=== PATIENT | female | born 1945 | race Caucasian/White ===

== ENCOUNTER 2017-09-13 07:51 | Inpatient (IN) ==
[2017-09-08 13:42] LABS: Appearance,Urine CLOUDY; Bacteria,Urine MANY /hpf (0); Bilirubin,Urine NEG (NEG); Color,Urine YELLOW; Glucose,Urine (UA) NEGATIVE (NEG); Leukocyte Esterase,Urine 25 /uL (NEG); Mucus,Urine FEW /hpf (0); Protein,Urine NEG (NEG); Specific Gravity,Urine 1.009 (1.000-1.035); Urine Blood NEG mg/dL (<0.03); Urine RBC 4 /hpf (0-1); Urine Squamous Epithelial Cell 16 /hpf (0-4); Urine WBC 13 /hpf (0-4); Urobilinogen,Urine NEG (NEG)
[2017-09-08 13:58] LABS: Basophils # (Auto) 0.1 K/mcL (0.0-0.3); Basophils % (Auto) 0.7 % (0.0-2.0); Eosinophils # (Auto) 0.2 K/mcL (0.0-0.7); Eosinophils % (Auto) 2.3 % (0.0-7.0); Granulocytes % (Auto) 62.5 % (38.0-78.0); Lymphocytes # (Auto) 2.4 K/mcL (1.5-4.8); Lymphocytes % (Auto) 27.4 % (15.5-49.0); Mean Cell Volume 85.4 fL (80.0-100.0); Mean Corpuscular HGB Conc 32.8 g/dL (31.0-36.0); Monocytes # (Auto) 0.6 K/mcL (0.1-0.9); Monocytes % (Auto) 7.1 % (1.0-12.0); Platelet Count 282 K/mcL (140-440); RBC 4.27 M/mcL (4.00-5.20); Red Cell Distribution Width 18.1 % (11.5-14.5)
[2017-09-08 14:06] LABS: Blood Urea Nitrogen 20 mg/dl (8-23)
[~2017-09-13 07:51] MED LIST: ACETAMINOPHEN 500 MG TABLET PO SCH; CELECOXIB 200 MG CAPSULE PO SCH; GABAPENTIN 300 MG CAPSULE PO SCH; ceFAZolin 1 GM VIAL IV SCH; oxyCODONE 10 MG TAB.ER.12H PO SCH
[2017-09-13 09:35] LABS: Appearance,Urine HAZY; Bacteria,Urine MOD /hpf (0); Bilirubin,Urine NEG (NEG); Color,Urine YELLOW; Glucose,Urine (UA) NEGATIVE (NEG); Leukocyte Esterase,Urine NEG /uL (NEG); Mucus,Urine MOD /hpf (0); Protein,Urine 30 mg/dL (NEG); Urine Blood NEG mg/dL (<0.03); Urine Hyaline Cast 9 /lpf (0-2); Urine RBC 1 /hpf (0-1); Urine Squamous Epithelial Cell 2 /hpf (0-4); Urine Transitional Epi Cells < 1 /hpf (0-2); Urine WBC 2 /hpf (0-4); Urobilinogen,Urine NEG (NEG)
[2017-09-13] MEDS ORDERED: GENTAMICIN SULFATE 800 MG/20 ML VIAL IR ONE (10:48)
[2017-09-13] MEDS ORDERED: ePHEDrine 50 MG/ML AMPUL IV ONE (11:40)
[2017-09-13] MEDS ORDERED: ROPIVACAINE HCL/PF 30 ML VIAL IJ ONE (11:40)
[2017-09-13] MEDS ORDERED: TRANEXAMIC ACID 1,000 MG/10 ML VIAL IV ONE ×3 (11:40→13:36)
[2017-09-13] MEDS ORDERED: MIDAZOLAM 2 MG/2 ML VIAL IV ONE (11:40)
[2017-09-13] MEDS ORDERED: LIDOCAINE HCL/PF 100 MG/5 ML SYRINGE IV ONE (11:40)
[2017-09-13] MEDS ORDERED: fentaNYL 100 MCG/2 ML VIAL IV ONE ×2 (11:40→13:28)
[2017-09-13] MEDS ORDERED: DEXAMETHASONE 10 MG/ML VIAL IV ONE (11:40)
[2017-09-13] MEDS ORDERED: PROPOFOL 200 MG/20 ML VIAL IV ONE (11:40)
[2017-09-13] MEDS ORDERED: PHENYLEPHRINE 10 MG/ML VIAL IV ONE (11:40)
[2017-09-13] MEDS ORDERED: BENZOCAINE/MENTHOL 1 LOZENGE PO PRN ×2 (13:15→13:25)
[2017-09-13] MEDS ORDERED: ONDANSETRON 4 MG/2 ML VIAL IV PRN ×2 (13:15→13:25)
[2017-09-13] MEDS ORDERED: LACTATED RINGERS 250 ML IV PRN (13:15)
[2017-09-13] MEDS ORDERED: LACTATED RINGERS 1,000 ML IV SCH (13:15)
[2017-09-13] MEDS ORDERED: PROMETHAZINE 25 MG/ML VIAL IV PRN (13:15)
[2017-09-13] MEDS ORDERED: FLUMAZENIL 0.1 MG/ML ML IV PRN (13:15)
[2017-09-13] MEDS ORDERED: IPRATROPIUM/ALBUTEROL 3 ML AMPUL.NEB NEB PRN (13:15)
[2017-09-13] MEDS ORDERED: METHOCARBAMOL 1,000 MG/10 ML VIAL IV PRN (13:15)
[2017-09-13] MEDS ORDERED: MEPERIDINE 25 MG/ML SYRINGE IV PRN (13:15)
[2017-09-13] MEDS ORDERED: NALOXONE HCL 0.4 MG/ML VIAL IV PRN (13:15)
[2017-09-13] MEDS ORDERED: MAGNESIUM HYDROXIDE 30 ML ORAL.SUSP PO PRN (13:25)
[2017-09-13] MEDS ORDERED: HYDROmorphone 2 MG/ML VIAL IV PRN (13:25)
[2017-09-13] MEDS ORDERED: FLEETS ADULT ENEMA PR PRN (13:25)
[2017-09-13] MEDS ORDERED: BISACODYL 10 MG SUPP.RECT PR PRN (13:25)
[2017-09-13] MEDS ORDERED: ACETAMINOPHEN 325 MG TABLET PO PRN (13:25)
[2017-09-13] MEDS ORDERED: POLYETHYLENE GLYCOL 3350 17 GM PACKET PO PRN (13:25)
[2017-09-13] MEDS ORDERED: TEMAZEPAM 15 MG CAPSULE PO PRN (13:25)
[2017-09-13] MEDS ORDERED: KETOROLAC 15 MG/ML VIAL IV PRN (13:25)
--- NOTE | 2017-09-13 13:25 | Brief Operative Note ---
Date of procedure: 09/13/17 Pre-op diagnosis: right shoulder rca and bicep tendonosis Post-op diagnosis: same Procedure: Right shoulder reverse tsa and bicep tenodesis Grafts/Implants: Yes Anesthesia: BARRYA Surgeon: Kaiser Carbajal Lead Project Manager: Marco Shelton Estimated blood loss (cc): 30
[2017-09-13] MEDS: fentaNYL 100 MCG/2 ML VIAL IV PRN ×2 (13:26→13:39)
--- NOTE | 2017-09-13 13:55 | XRay Report ---
CLINICAL INFORMATION: Reason for Exam:Post-OP Total Shoulder COMPARISON: None. FINDINGS: Total shoulder prostheses is anatomically aligned. No osseous abnormalities. Soft tissue swelling seen as expected IMPRESSION: Negative Interpreted and Authenticated by: Manish Ash 09/13/17
[2017-09-13] MEDS: 0.45 % SODIUM CHLORIDE 1,000 ML IV SCH (14:00)
[2017-09-13] MEDS: 0.9 % SODIUM CHLORIDE 10 ML SYRINGE IV SCH ×2 (14:00→22:02)
--- NOTE | 2017-09-13 16:20 | Operative Note ---
DATE OF OPERATION: 09/13/2017 PREOPERATIVE DIAGNOSES: Right shoulder rotator cuff arthropathy and biceps tendinopathy. POSTOPERATIVE DIAGNOSES: Right shoulder rotator cuff arthropathy and biceps tendinopathy. PROCEDURE: Right reverse total shoulder with a biceps tenodesis. SURGEON: Kaiser Carbajal M.D. CLOUD ENGINEER: Marco Shelton PA-C. ANESTHESIA: General LMA anesthesia. COMPLICATIONS: None. ESTIMATED BLOOD LOSS: About 50 mL. IMPLANTS: Santa reverse total shoulder implants with a 10 mm poly, 36 mm glenosphere, metaglene with a 28 mm central screw, two 32 mm locking screws and a 16 mm screw. The stem was a cementless stem with a small amount of cement near its tip because of bone quality. DESCRIPTION OF PROCEDURE: The patient was brought to the operating room and put to sleep with general LMA anesthesia. Once asleep, the patient had the right shoulder sterilely prepped and draped in the usual sterile fashion. We confirmed the operative site with a timeout and then recognized incisions, initials, x-rays, and consent form. All matched. We then proceeded with a right reverse total shoulder. A deltopectoral approach was performed, retracting the deltoid with the cephalic vein laterally. We exposed the conjoined tendon, retracted it medially. We released the subscap, or what was left of the subscap, and released the remnants of the biceps. We dislocated the humeral head and replaced the biceps tendon and repaired it with a #2 Ethibond. We placed the guide on the humeral head and made our neck cut at 20 degrees of retroversion. Once done, I then placed a plate on the humerus and subluxed it posteriorly. Once done, I then identified the glenoid and performed a 360-degree capsular release and removed the remnants of the biceps tendon with a Bovie. Once done, I then placed the pin centrally. I reamed with the eccentric reamer and then positioned a screw centrally obtaining a 28 mm central screw, two 32 mm and one 16 mm screw with good purchase of all. We irrigated thoroughly and then placed a 36 mm glenosphere, eccentricity with 2 mm of offset and 2 mm of the eccentricity. Once this was placed, we then broached up the humerus to a size 10 stem, trialed components up to the size 10. The 10 poly was very stable and tension perfect for the deltoid. We irrigated thoroughly and cemented into place the distal tip of the 10 mm stem with a proximal ingrowth portion. We tapped into place a 10 mm poly proximally and this was reduced. Good tension, good range of motion throughout. I irrigated thoroughly and then repaired the deltopectoral interval with 2-0 Vicryl, closed the fatty layer with a #1 Stratafix, and closed the skin with 2-0 Vicryls and joanna. Sterile bandage applied. A DonJoy sling was fitted and given to the patient as well. CAIN:dean Job ID: [id number] Doc ID: [id number] Kaiser Carbajal MD
[2017-09-13] MEDS: oxyCODONE/APAP 5/325MG TABLET PO PRN (16:36)
[2017-09-13] MEDS: ceFAZolin 1 GM VIAL IV SCH (19:53)
[2017-09-13] MEDS ORDERED: MONTELUKAST 10 MG TABLET PO SCH (21:00)
[2017-09-13] MEDS ORDERED: FUROSEMIDE 20 MG TABLET PO SCH (21:00)
[2017-09-13] MEDS ORDERED: DOXAZOSIN 4 MG TABLET PO SCH (21:00)
[2017-09-13] MEDS ORDERED: QUEtiapine 100 MG TABLET PO SCH (21:00)
[2017-09-13] MEDS ORDERED: SENNOSIDES 1 TABLET PO SCH (21:00)
[2017-09-13] MEDS ORDERED: GABAPENTIN 300 MG CAPSULE PO SCH (21:00)
[2017-09-13] MEDS: ACLIDINIUM BROMIDE 400 MCG INH SCH (21:47)
[2017-09-13] MEDS: DOCUSATE SODIUM 100 MG CAPSULE PO SCH (21:47)
[2017-09-13] MEDS: SPIRONOLACTONE 25 MG TABLET PO SCH (21:47)
[2017-09-14] MEDS: 0.45 % SODIUM CHLORIDE 1,000 ML IV SCH ×2 (00:34→09:11)
[2017-09-14] MEDS: 0.9 % SODIUM CHLORIDE 10 ML SYRINGE IV SCH (04:00)
[2017-09-14] MEDS: ceFAZolin 1 GM VIAL IV SCH (04:00)
[2017-09-14] MEDS: oxyCODONE/APAP 5/325MG TABLET PO PRN ×2 (04:12→09:09)
--- NOTE | 2017-09-14 07:49 | Orthopedic Progress Note ---
Subjective Patient information: Note initiated : 09/14/17 at 7:48 am Service Date, if different from initiated Date: [] Patient: Ursula Dumont 72 y/o F admitted on 09/13/17 for Right Reverse Total Shoulder Arthroplasty. Chief Complaint: [Pt is stable this morning on post operative day 1 without any significant concerns or complaints. Patients vital signs have remained stable. Patients dressing is dry and is grossly instact from a neurovascular and motor standpoint. Patients 10 point ROS is otherwise negative. ] Objective Vital signs: Vital Signs Temp Pulse Resp BP Pulse Ox 09/14/17 07:35 96.7 F L 95 H 20 145/78 97 09/14/17 04:45 105 H 151/81 09/14/17 04:00 98.3 F 102 H 20 194/85 91 09/14/17 00:00 97.6 F 101 H 20 161/83 94 09/13/17 22:31 98 09/13/17 22:30 98 09/13/17 20:00 98.3 F 113 H 20 124/75 90 09/13/17 15:59 149/83 93 09/13/17 15:28 146/76 91 09/13/17 15:00 135/91 91 09/13/17 14:29 155/74 91 09/13/17 14:13 153/90 92 09/13/17 13:58 164/80 91 09/13/17 13:40 91 H 15 131/83 95 09/13/17 13:35 92 H 13 121/69 96 09/13/17 13:30 88 12 137/72 96 09/13/17 13:25 89 15 127/67 97 09/13/17 13:20 90 12 122/54 95 09/13/17 13:15 91 H 13 138/59 93 09/13/17 13:10 98.0 F 85 18 154/70 97 09/13/17 08:12 98.1 F 18 145/84 92 09/13/17 07:51 18 Intake and Output 09/13/17 09/14/17 09/14/17 21:59 05:59 13:59 Intake Total 760 / 760 2373 / 2373 Output Total 200 / 200 950 / 950 Balance 560 / 560 1423 / 1423 Intake: IV 1413 / 1413 Sodium Chloride 0.45% 1,000 ml 1413 / 1413 @ 100 mls/hr IV .Q10H ROSE Rx#: [id number] Oral 760 / 760 960 / 960 Output: Void Amount 200 / 200 950 / 950 Other: Meal Dinner Percent of Meal Consumed 100% # Voids 1 1 Weight 192 lb 8 oz Intake & Output: Intake & Output 09/13/17 09/14/17 09/14/17 21:59 05:59 13:59 Intake Total 760 / 760 2373 / 2373 Output Total 200 / 200 950 / 950 Balance 560 / 560 1423 / 1423 Weight 192 lb 8 oz Intake: IV 1413 / 1413 Sodium Chloride 0.45% 1,000 ml 1413 / 1413 @ 100 mls/hr IV .Q10H ROSE Rx#: [id number] Oral 760 / 760 960 / 960 Output: Void Amount 200 / 200 950 / 950 Other: Meal Dinner Percent of Meal Consumed 100% # Voids 1 1 Incision: Yes healing Incision clean and dry: Yes Dressing: Yes clean Weight bearing status: full Neurological exam IM: Yes motor sensory intact, Yes neurovascular intact - Labs CBC & BMP: 09/08/17 11:40 09/08/17 11:40 Labs: 09/08/17 11:40 Hgb 12.0 Hct 36.4 Assessment and Plan (1) History of reverse total replacement of right shoulder joint The patient has been educated regarding dressing care, Physical Therapy recommendations, home exercises, restrictions, and follow up appointments. The patient has had all necessary DME prescribed. The patient has remained relatively stable during their hospital course. Status: Acute
--- NOTE | 2017-09-14 07:54 | Discharge Summary ---
Ortho Discharge - TSA - Patient Instructions Diet: Regular Diet Activity: activity as tolerated, weight bearing as tolerated Total Shoulder Protocol: Leave immobilizer in place except for bathing and ROM. Abduction pillow. Continue to wear sling until seen by physician. Codman Pendulum : These exercises use momentum produced by your body to move your shoulder joint. Bend your knees and shift your weight to your front leg, then back, allowing your arm to swing in the same directions. Using the same technique, alternately shift your weight between your right and left legs, allowing your arm to swing from side to side. These exercises are also performed in counterclockwise and clockwise circular motions. Typically these exercises are performed several times per day, for a set number repetitions or minutes, such as 20 times in a row or 5 minutes at a time. Dressing Care: Aquacel Ag - leave on for 5 days - Problem Maintenance (1) History of reverse total replacement of right shoulder joint Status: Acute - Follow Up Plan Follow Up Appointments: Marco Shelton PA-C [Physician Home Economics Expert] - 09/28/17 10:10 am Disposition: Home, Self-Care Prognosis: Good Rehab Potential: Good I certify that the patient requires SNF services: No Overall status at discharge: patient is progressing back to baseline - Orders For Discharge Prescriptions: Docusate Sodium [Colace] 100 mg PO BID #60 capsule oxyCODONE/APAP [Percocet 5-325 mg] 1 - 2 tab PO Q4HP PRN #75 tablet PRN Reason: Pain Level 3-6
[2017-09-14] MEDS ORDERED: ALLOPURINOL 300 MG TABLET PO SCH (09:00)
[2017-09-14] MEDS ORDERED: EQUATE PO SCH (09:00)
[2017-09-14] MEDS ORDERED: DULoxetine 30 MG CAPSULE PO SCH (09:00)
[2017-09-14] MEDS: DOCUSATE SODIUM 100 MG CAPSULE PO SCH (09:09)
[2017-09-14] MEDS: ACLIDINIUM BROMIDE 400 MCG INH SCH (09:10)
[2017-09-14] MEDS: SPIRONOLACTONE 25 MG TABLET PO SCH (09:10)
[2017-09-14] MEDS: GABAPENTIN 300 MG CAPSULE PO SCH ×2 (09:10→11:29)
== END 2017-09-14 14:45 | disposition home or self-care (01) | DRG 483 ==
LOC: MEDSUR 07:51
PROVIDERS: ADMIT Orthopaedic Surgery; ATTEND Orthopaedic Surgery

== ENCOUNTER 2021-12-29 07:25 | Inpatient (IN) ==
[2021-12-22 11:09] LABS: Basophils # (Auto) 0.07 K/mcL (0.00-0.30); Basophils % (Auto) 0.6 % (0.0-2.0); Eosinophils # (Auto) 0.24 K/mcL (0.00-0.70); Eosinophils % (Auto) 2.2 % (0.0-7.0); Hemoglobin 13.1 g/dL (11.2-15.7); Lymphocytes # (Auto) 1.51 K/mcL (1.50-4.80); Lymphocytes % (Auto) 13.9 % (15.5-49.0); Mean Cell Volume 86.2 fL (80.0-100.0); Mean Corpuscular HGB Conc 32.8 g/dL (31.0-36.0); Mean Platelet Volume 9.8 fL (7.4-10.4); Monocytes # (Auto) 0.83 K/mcL (0.10-0.90); Monocytes % (Auto) 7.6 % (1.0-12.0); Neutrophils % (Auto) 75.2 % (38.0-78.0); Platelet Count 247 K/mcL (140-440); RBC 4.64 M/mcL (3.59-5.38); Red Cell Distribution Width 14.6 % (11.5-14.5); WBC 10.9 K/mcL (4.5-11.0)
[2021-12-22 13:55] LABS: Blood Urea Nitrogen 27 mg/dL (8-23); Calcium 9.8 mg/dL (8.6-10.4); Carbon Dioxide 25 mmol/L (22-30); Chloride 99 mmol/L (96-108); Glomerular Filtration Rate 30; Glucose 185 mg/dL (70-105)
[2021-12-22 15:22] LABS: Appearance,Urine Clear (Clear); Bacteria,Urine FEW /hpf (0); Bilirubin,Urine Negative (Negative); Color,Urine Yellow; Culture Indicated,Urine Yes; Glucose,Urine (UA) Negative (Negative); Ketones,Urine Negative (Negative); Leukocyte Esterase,Urine Negative /uL (Negative); Nitrate,Urine Negative (Negative); Protein,Urine Negative (Negative); Specific Gravity,Urine 1.015 (1.000-1.035); Urine Blood Large ery/mcL (Negative); Urine RBC < 1 /hpf (0-3); Urine Squamous Epithelial Cell 1 /hpf (0-4); Urine WBC 0 /hpf (0-4); Urobilinogen,Urine Normal
--- NOTE | 2021-12-22 19:33 | EKG ---
[facility] Test Date: 2021-12-22 Pat Name: Ursula Dumont Department: YESSICA Room: Gender: Female Glove Operator: : 1945 Requested By: Quique Wooten Order Number: [id number] Reading MD: Edouard Rodriguez Measurements Intervals [place] Rate: 81 P: 51 VT: 189 QRS: 5 QRSD: 89 T: 46 QT: 372 QTc: 432 Interpretive Statements Sinus rhythm Electronically Signed On 12-22-2021 19:33:30 PDT by Edouard Rodriguez /[email or web address]/[email or web address]/[id number]
[2021-12-23 14:15] LABS: Hemoglobin A1C 7.5 % Hgb (4.0-6.0)
[~2021-12-29 07:25] MED LIST changes: +0.9 % SODIUM CHLORIDE 9 ML, KETOROLAC 30 MG, ROPIVACAINE HCL/PF 49.5 ML, EPINEPHrine 0.... IJ SCH; -GABAPENTIN 300 MG CAPSULE PO SCH; +PREGABALIN 25 MG CAPSULE PO SCH; -ceFAZolin 1 GM VIAL IV SCH; +ceFAZolin 2 GM in DEXTROSE 5% IN WATER 50 ML IV SCH
[2021-12-29] MEDS ORDERED: PHENYLephrine 1 MG/10 ML SYRINGE (ANEST) ONE (09:32)
[2021-12-29] MEDS ORDERED: TRANEXAMIC ACID 1,000 MG/10 ML VIAL ONE (09:32)
[2021-12-29] MEDS ORDERED: ONDANSETRON 4 MG/2 ML VIAL ONE (09:32)
[2021-12-29] MEDS ORDERED: ePHEDrine 50 MG/5 ML SYRINGE (ANEST) IV ONE (09:32)
[2021-12-29] MEDS ORDERED: DEXAMETHASONE 10 MG/ML VIAL ONE (09:32)
[2021-12-29] MEDS ORDERED: GLYCOPYRROLATE 0.2 MG/ML VIAL IV ONE (09:32)
[2021-12-29] MEDS ORDERED: MAGNESIUM SULFATE 2 GM/50 ML BAG IV ONE (09:32)
[2021-12-29] MEDS ORDERED: PROPOFOL 200 MG/20 ML VIAL IV ONE (09:32)
[2021-12-29] MEDS ORDERED: ROPIVACAINE HCL/PF 20 ML VIAL IJ ONE (09:32)
[2021-12-29] MEDS ORDERED: LIDOCAINE HCL/PF 100 MG/5 ML SYRINGE IV ONE (09:32)
[2021-12-29] MEDS ORDERED: KETAMINE 50 MG/ML Syringe (ANEST) IV ONE (09:32)
[2021-12-29] MEDS ORDERED: IPRATROPIUM/ALBUTEROL 3 ML AMPUL.NEB NEB PRN (10:00)
[2021-12-29] MEDS ORDERED: fentaNYL 100 MCG/2 ML VIAL IV PRN (10:00)
[2021-12-29] MEDS ORDERED: METOPROLOL TARTRATE 5 MG/5 ML VIAL IV PRN (10:00)
[2021-12-29] MEDS ORDERED: LACTATED RINGERS 1,000 ML IV SCH ×2 (10:00→10:30)
[2021-12-29] MEDS ORDERED: LABETALOL 5 MG/ML ML IV PRN (10:00)
[2021-12-29] MEDS ORDERED: METHOCARBAMOL 1,000 MG/10 ML VIAL IV PRN (10:00)
[2021-12-29] MEDS ORDERED: ACETAMINOPHEN 1,000 MG/100 ML BAG IV ONE (10:00)
[2021-12-29] MEDS ORDERED: LACTATED RINGERS 250 ML IV PRN (10:00)
[2021-12-29] MEDS ORDERED: ONDANSETRON 4 MG/2 ML VIAL IV PRN (10:00)
[2021-12-29] MEDS ORDERED: TRANEXAMIC ACID 1,000 MG/10 ML VIAL IV SCH (10:16)
[2021-12-29] MEDS ORDERED: HYDROcodone/APAP 10/325MG TABLET PO PRN (10:16)
[2021-12-29] MEDS ORDERED: ACETAMINOPHEN 325 MG TABLET PO PRN (10:16)
--- NOTE | 2021-12-29 10:16 | Brief Operative Note ---
Brief Operative Note Date of procedure: 12/29/21 Pre-op diagnosis: Right knee ligament loosening Post-op diagnosis: same Procedure: right knee revision one component Grafts/Implants: Yes Anesthesia: GETA Findings: loosening Complications: none Surgeon: Kaiser Carbajal Sales And Service Advisor: Marco Shelton Estimated blood loss (cc): 42 Specimens Removed/Pathology: none sent Condition: stable Disposition: PACU
[2021-12-29] MEDS ORDERED: ALBUTEROL SULFATE 200 PUFF INHALER INH PRN (10:30)
--- NOTE | 2021-12-29 10:40 | Discharge Plan ---
Discharge Instructions - TKA Patient Instructions Total Knee Protocol: For Total Knee: Start ROM HERNANDEZ with stationary bike or rocking chair. Work on gaining full extension of knee. Posterior dislocation precautions provided. Hip abductor strengthening and gait training instructions provided. Apply Cryocuff as instructed. Additional Dressing Instructions: Leave Zip line closure patch intact until followup Discharge Plan Patient/Caregiver Discharge Instructions Activity: ambulate only with your walker and as per physical therapy Diet: Regular Diet Prescriptions: New aspirin [Ecotrin Low Strength] 81 mg tablet,delayed release (DR/EC) 81 mg PO BID Qty: 60 0RF oxycodone 5 mg capsule 5 mg PO Q4H PRN (Reason: pain) Qty: 60 0RF docusate sodium 100 mg capsule 100 mg PO BID Qty: 60 0RF No Action pregabalin 50 mg capsule 50 mg PO BID amlodipine 5 mg tablet 5 mg PO BID torsemide 10 mg tablet 10 mg PO QDAY pravastatin 40 mg tablet 40 mg PO duloxetine 20 mg capsule,delayed release(DR/EC) 20 mg PO QDAY spironolactone 25 MG tablet 25 mg PO BID allopurinol 300 MG tablet 300 mg PO DAILY doxazosin [Cardura] 2 MG tablet 4 mg PO HS duloxetine [Cymbalta] 60 MG capsule,delayed release(DR/EC) 60 mg PO DAILY multivitamin [Multiple Vitamin] Tablet 1 tab PO QAM quetiapine 25 mg Tablet 25 mg PO HS famotidine 20 mg Tablet 20 mg PO QDAY aspirin 81 mg Tablet 81 mg PO QDAY albuterol 90 mcg/actuation Aerosol 180 mcg INHALATION TID PRN (Reason: Shortness Of Breath) Rx Instructions: 1-2 puffs bid-tid cholecalciferol (vitamin D3) [Vitamin D3] 125 mcg (5,000 unit) Tablet 125 mcg PO QDAY Hair, Skin and Nails Advanced 3.3 mg iron-25 mcg Tablet 1 tab PO BID Anoro Ellipta 62.5-25 mcg/actuation Blister With Device 1 inh INHALATION BID Rx Instructions: patient states uses twice a day Other Ambulatory Orders: CPM Discharge Order (ONCE) Location: None Selected Ordered By: Marco Shelton Physical Therapy DC - TKA (Routine) Location: None Selected Ordered By: Marco Shelton Toilet Riser Discharge Order (ONCE) Location: None Selected Ordered By: Marco Squires (ONCE) Location: None Selected Ordered By: Marco Shelton Follow Up Plan Follow up with: Kaiser Carbajal MD [Physician] - 01/13/22 10:50 am Marco Shelton PA-C [Physician Travel Journalist] - Patient Disposition: Home, Self-Care Prognosis: Good Rehab Potential: Good I certify that the patient requires SNF services: No Overall status at discharge: patient is progressing back to baseline Discharge Orders: Discharge Order (Routine); Ordered 12/29/21 Ordered By: Marco Shelton
--- NOTE | 2021-12-29 10:49 | Operative Note ---
DATE OF OPERATION: 12/29/2021 PREOPERATIVE DIAGNOSIS: Right knee instability. POSTOPERATIVE DIAGNOSIS: Right knee instability. PROCEDURE: Right total knee revision of one component and removal of spur. SURGEON: Kaiser Carbajal M.D. MILL HOUSE SUPERVISOR: Marco Shelton PA-C. The PA's assistance was required for the safe and efficient completion of the entire case. This provider's expertise and technical skill were required throughout the case. The PA assisted with preoperative coordination, intraoperative retraction, wound closure, dressing and splint application, as well as postoperative documentation and care coordination. ANESTHESIA: General LMA anesthesia. COMPLICATIONS: None. TOURNIQUET TIME: Approximately 10 minutes at 220 pounds of pressure. IMPLANTS: Implant that was changed is a poly liner exchange to the baseplate. It was a 3 mm baseplate with a 19 mm constrained liner. DISPOSITION: PACU. DESCRIPTION OF PROCEDURE: The patient was brought to the operating room, put to sleep with general LMA anesthesia. Once asleep, the patient had the right leg sterilely prepped and draped in the usual sterile fashion. A timeout was performed, confirming it as the operative site by initials, consent form, and x-rays. We made a midline incision, midvastus approach was performed. She had a prior 16 mm poly that was very stable, but she was loose laterally. At this point, we elevated the medial collateral ligament to balance the knee and inserted a 19 constrained liner. This seemed to mechanically make her stable throughout the arc of motion. We then inspected the patella. There was lateral impingement of a small spur that was removed using a reciprocating saw. Once this was done, the patella tracked very well without complications. We irrigated thoroughly. All components were checked for stability. We injected the soft tissue envelope with the post-injection formula and then we implanted the final 19 mm constrained liner for a 3 mm baseplate. This fit very well with equal balance throughout the arc of motion. We then closed the midvastus approach with #1 Stratafix x2 and closed the skin with adhesive closure. The patient tolerated this well without complication. RBH:dean Job ID: [id number] Doc ID: [id number] Kaiser Carbajal MD
--- NOTE | 2021-12-29 11:18 | XRay Report ---
HISTORY: Right total knee revision FINDINGS: There is a well-positioned right total knee prosthesis. There is a metal fletcher contacting the femoral and tibial components. No fracture is present. There are several well corticated soft tissue calcifications adjacent to the joint. Preoperative x-rays are not available at this time. There is cement in the shaft of the mid and distal femur. Impression: well-positioned right knee prosthesis Interpreted and Authenticated by: Malachi Azevedo 12/29/21
[2021-12-29] MEDS ORDERED: ceFAZolin 1 GM VIAL IV SCH (17:00)
[2021-12-29] MEDS: ASPIRIN 81 MG TAB.CHEW PO SCH (20:56)
[2021-12-29] MEDS: PREGABALIN 25 MG CAPSULE PO SCH (20:57)
[2021-12-29] MEDS: SPIRONOLACTONE 25 MG TABLET PO SCH (20:57)
[2021-12-29] MEDS: amLODIPine 5 MG TABLET PO SCH (20:57)
[2021-12-29] MEDS: 0.9 % SODIUM CHLORIDE 10 ML SYRINGE IV SCH ×2 (20:58→21:28)
[2021-12-29] MEDS ORDERED: ATORVASTATIN 10 MG TABLET PO SCH (21:00)
[2021-12-29] MEDS ORDERED: DOXAZOSIN 4 MG TABLET PO SCH (21:00)
[2021-12-29] MEDS ORDERED: [UNRECOGNIZED DRUG - OTHER] PO SCH (21:00)
[2021-12-29] MEDS ORDERED: MULTIVIT MIN IRON FA HERB PO SCH (21:00)
[2021-12-29] MEDS ORDERED: QUEtiapine 25 MG TABLET PO SCH (21:00)
[2021-12-29] MEDS ORDERED: CEPHALEXIN 250 MG CAPSULE PO ONE (21:19)
[2021-12-29] MEDS: UMECLIDINIUM VILANTEROL INH SCH (21:30)
--- NOTE | 2021-12-30 07:01 | Orthopedic Progress Note ---
SUBJECTIVE Subjective Patient information: Note initiated : 12/30/21 at 7:00 am Service Date, if different from initiated Date: [] Patient: Ursula Dumont 76 y/o F admitted on 12/29/21 for Right Revision Total Knee Arhtroplasty. Chief Complaint: [Pt is stable this morning on post operative day without any significant concerns or complaints. Patients vital signs have remained stable. Patients dressing is dry and is grossly intact from a neurovascular and motor standpoint. Patients 10 point ROS is otherwise negative. ] Constitutional Vitals: Vital Signs Temp Pulse Resp BP Pulse Ox O2 Del Method O2 Flow Rate 97.6 F 100 H 12 146/66 97 4 12/30/21 02:34 12/30/21 02:34 12/30/21 02:34 12/30/21 02:34 12/30/21 02:34 12/30/21 02:34 12/30/21 02:34 Period Temp Pulse Resp BP Sys/Sandoval Pulse Ox O2 Del Method O2 Flow Rate Last 24 Hr 97 F-97.9 F 64-102 12-23 92-146/42-105 90-100 Nasal Cannula- Simple Mask 3-6 Intake and Output 12/29/21 12/30/21 12/30/21 21:59 05:59 13:59 Intake Total 1080 700 Output Total 100 Balance 980 700 Weight 216 lb Intake & Output: Intake & Output 12/29/21 12/30/21 12/30/21 21:59 05:59 13:59 Intake Total 1080 700 Output Total 100 Balance 980 700 Weight 216 lb Intake: Oral 1080 700 Output: Void Amount 100 Other: Meal Dinner Percent of Meal Consumed 100% Feeding Ability Independent # Voids 1 Extremities Exam Extremities exam: Present normal capillary refill, normal inspection, Foot pink and warm and neurovascular intact OBJ DATA Labs CBC & Chem 7: 12/22/21 06:26 12/22/21 06:26 Meds: Medications Acetaminophen (Acetaminophen 325 Mg Tablet) 650 mg PO Q6HP PRN; Protocol PRN Reason: Per Pain Protocol/Fever > 101 Hydrocodone Bitart/Acetaminophen (Hydrocodone/Apap 10/325mg Tablet) 1 - 2 tab PO Q4HP PRN; Protocol PRN Reason: Per Pain Protocol Albuterol Sulfate (Albuterol Sulfate 200 Puff Inhaler) 1 puff INH TIDP PRN PRN Reason: Shortness Of Breath Allopurinol (Allopurinol 300 Mg Tablet) 300 mg PO DAILY [facility] Amlodipine Besylate (Amlodipine 5 Mg Tablet) 5 mg PO BID [facility] Last Admin: 12/29/21 20:57 Dose: 5 mg Aspirin (Aspirin 81 Mg Tab.Chew) 81 mg PO BID [facility] Last Admin: 12/29/21 20:56 Dose: 81 mg Atorvastatin Calcium (Atorvastatin 10 Mg Tablet) 10 mg PO [facility] Last Admin: 12/29/21 20:57 Dose: 10 mg Doxazosin Mesylate (Doxazosin 4 Mg Tablet) 4 mg PO HS [facility] Last Admin: 12/29/21 20:57 Dose: 4 mg Duloxetine HCl (Duloxetine 20 Mg Capsule) 80 mg PO QDAY [facility] Famotidine (Famotidine 20 Mg Tablet) 20 mg PO QDAY [facility] Iron Carb/Multivit/Heard/Folic Acid (Multivit,Ther Iron,Ca,Fa & Min 1 Tablet) 1 tab PO DAILY [facility] Umeclidinium- Vilanterol [Anoro Ellipta] 62.5-25 Mcg /Actuation Inhaler 1 dose INH BID [facility] Last Admin: 12/29/21 21:30 Dose: Not Given Pregabalin (Pregabalin 25 Mg Capsule) 50 mg PO BID [facility] Last Admin: 12/29/21 20:57 Dose: 50 mg Quetiapine Fumarate (Quetiapine 25 Mg Tablet) 25 mg PO [facility] Last Admin: 12/29/21 20:57 Dose: 25 mg Spironolactone (Spironolactone 25 Mg Tablet) 25 mg PO BID [facility] Last Admin: 12/29/21 20:57 Dose: 25 mg Torsemide (Torsemide 10 Mg Tablet) 10 mg PO QDAY [facility] Vitamin D (Vitamin D3 125 Mcg Tablet) 125 mcg PO QDAY [facility] A/P Narrative A/P Narrative: The patient has been educated regarding dressing care, , restrictions, and follow up appointments. The patient has had all necessary DME prescribed. The patient has remained relatively stable during their hospital course. Time Spent With Patient Time: Total time spent is greater than 50% in coordination of care (as documented) at patient's floor/unit and/or counseling patient: Total time spent with greater than 50% in coordination of care (as documented) at patient's floor/unit and/or counseling patient:: less than 15 minutes Critical Care Time: No
[2021-12-30] MEDS: SPIRONOLACTONE 25 MG TABLET PO SCH (08:49)
[2021-12-30] MEDS: amLODIPine 5 MG TABLET PO SCH (08:49)
[2021-12-30] MEDS: ASPIRIN 81 MG TAB.CHEW PO SCH (08:49)
[2021-12-30] MEDS: UMECLIDINIUM VILANTEROL INH SCH (08:50)
[2021-12-30] MEDS: PREGABALIN 25 MG CAPSULE PO SCH (08:50)
[2021-12-30] MEDS ORDERED: MULTIVIT,THER IRON,CA,FA & MIN 1 TABLET PO SCH (09:00)
[2021-12-30] MEDS ORDERED: DULOXETINE 60 MG PO SCH (09:00)
[2021-12-30] MEDS ORDERED: [UNRECOGNIZED DRUG - OTHER] PO SCH (09:00)
[2021-12-30] MEDS ORDERED: FAMOTIDINE 20 MG TABLET PO SCH (09:00)
[2021-12-30] MEDS ORDERED: ALLOPURINOL 300 MG TABLET PO SCH (09:00)
[2021-12-30] MEDS ORDERED: DULoxetine 20 MG CAPSULE PO SCH (09:00)
[2021-12-30] MEDS ORDERED: TORSEMIDE 10 MG TABLET PO SCH (09:00)
[2021-12-30] MEDS ORDERED: VITAMIN D3 125 MCG TABLET PO SCH (09:00)
[2021-12-30] MEDS ORDERED: NON FORMULARY MEDICATION 1 DOSE MISCELL (Aspirin 81 mg Tablet) PO SCH (09:00)
== END 2021-12-30 11:59 | disposition home or self-care (01) | DRG 468 ==
LOC: SUR 07:25 → MEDSUR 07:25 → EDSTATUS 09:15 → MEDSUR 11:30
PROVIDERS: ADMIT Orthopaedic Surgery; ATTEND Orthopaedic Surgery

== ENCOUNTER 2024-03-27 19:18 | Inpatient (IN) ==
[2024-03-27] MEDS: KETOROLAC 15 MG/ML VIAL IV ONE (20:12)
[2024-03-27 20:14] LABS: POC Calcium, Ionized 1.17 (1.16-1.32); POC Creatinine 2.3 (0.6-1.2)
[2024-03-27 20:43] LABS: Basophils # (Auto) 0.06 K/mcL (0.00-0.30); Basophils % (Auto) 0.8 % (0.0-2.0); Eosinophils % (Auto) 2.7 % (0.0-7.0); Hematocrit 34.3 % (34.1-44.9); Hemoglobin 10.4 g/dL (11.2-15.7); Lymphocytes # (Auto) 2.02 K/mcL (1.50-4.80); Lymphocytes % (Auto) 27.5 % (15.5-49.0); Mean Corpuscular HGB Conc 30.3 g/dL (31.0-36.0); Mean Platelet Volume 9.6 fL (8.8-12.5); Monocytes # (Auto) 0.66 K/mcL (0.10-0.90); Neutrophils % (Auto) 59.6 % (38.0-78.0); Platelet Count 301 K/mcL (140-440); RBC 4.29 M/mcL (3.59-5.38); Red Cell Distribution Width 18.4 % (11.5-14.5); WBC 7.3 K/mcL (4.5-11.0)
[2024-03-27 21:10] LABS: ALT/SGPT 16 U/L (<40); AST/SGOT 39 U/L (<32); Albumin 3.8 gm/dL (3.2-5.2); Albumin/Globulin Ratio 1.7 (1.0-2.3); Alkaline Phosphatase 116 U/L (39-117); Bilirubin,Total 0.3 mg/dL (0.1-1.0); Blood Urea Nitrogen 24 mg/dL (8-23); Calcium 9.3 mg/dL (8.6-10.4); Carbon Dioxide 23 mmol/L (22-30); Chloride 104 mmol/L (96-108); Globulin 2.3 gm/dL (2.2-3.7); Glomerular Filtration Rate 23; Glucose 108 mg/dL (70-105); Potassium 4.1 mmol/L (3.3-5.1); Sodium 140 mmol/L (133-145); Thyroid Stimulating Hormone 0.94 uIU/mL (0.27-5.01)
[2024-03-27] MEDS: 0.9 % SODIUM CHLORIDE 1,000 ML IV ONE ×2 (21:20→22:29)
[2024-03-27] MEDS: fentaNYL 100 MCG/2 ML VIAL IV ONE (21:20)
[2024-03-28] MEDS ORDERED: ONDANSETRON 4 MG/2 ML VIAL IV PRN (00:38)
[2024-03-28] MEDS ORDERED: POLYETHYLENE GLYCOL 3350 17 GM PACKET PO PRN (00:38)
[2024-03-28] MEDS: 0.9 % SODIUM CHLORIDE 1,000 ML IV SCH ×2 (01:10→03:41)
[2024-03-28] MEDS: morphine 4 MG/ML VIAL IV PRN (01:41)
[2024-03-28] MEDS: METHOCARBAMOL 1,000 MG/10 ML VIAL IV ONE (01:42)
[2024-03-28] MEDS: ACETAMINOPHEN 1,000 MG/100 ML BAG IV ONE ×2 (01:42→01:55)
[2024-03-28] MEDS: morphine 4 MG/ML VIAL ONE (01:43)
[2024-03-28] MEDS: METHOCARBAMOL 1,000 MG/10 ML VIAL ONE (01:56)
[2024-03-28] MEDS: 0.9 % SODIUM CHLORIDE 10 ML SYRINGE IV SCH (05:46)
[2024-03-28 06:06] LABS: Basophils # (Auto) 0.05 K/mcL (0.00-0.30); Basophils % (Auto) 0.6 % (0.0-2.0); Eosinophils # (Auto) 0.22 K/mcL (0.00-0.70); Eosinophils % (Auto) 2.5 % (0.0-7.0); Hematocrit 31.4 % (34.1-44.9); Hemoglobin 9.4 g/dL (11.2-15.7); Lymphocytes # (Auto) 2.69 K/mcL (1.50-4.80); Lymphocytes % (Auto) 30.6 % (15.5-49.0); Mean Cell Volume 80.9 fL (80.0-100.0); Mean Corpuscular HGB Conc 29.9 g/dL (31.0-36.0); Mean Platelet Volume 9.4 fL (8.8-12.5); Monocytes # (Auto) 0.97 K/mcL (0.10-0.90); Platelet Count 280 K/mcL (140-440); RBC 3.88 M/mcL (3.59-5.38); Red Cell Distribution Width 18.7 % (11.5-14.5); WBC 8.8 K/mcL (4.5-11.0)
[2024-03-28 06:35] LABS: ALT/SGPT 15 U/L (<40); AST/SGOT 36 U/L (<32); Albumin 3.5 gm/dL (3.2-5.2); Albumin/Globulin Ratio 1.7 (1.0-2.3); Alkaline Phosphatase 109 U/L (39-117); Bilirubin,Direct < 0.2 mg/dL (0-0.3); Bilirubin,Total 0.3 mg/dL (0.1-1.0); Blood Urea Nitrogen 23 mg/dL (8-23); Calcium 8.9 mg/dL (8.6-10.4); Carbon Dioxide 23 mmol/L (22-30); Chloride 108 mmol/L (96-108); Globulin 2.1 gm/dL (2.2-3.7); Glomerular Filtration Rate 23; Glucose 102 mg/dL (70-105); Lactate Dehydrogenase 172 U/L (135-225); Phosphorous 4.1 mg/dL (2.5-4.5); Potassium 4.2 mmol/L (3.3-5.1); Sodium 142 mmol/L (133-145); Triglycerides 107 mg/dL (<150)
[2024-03-28] MEDS ORDERED: IPRATROPIUM/ALBUTEROL 3 ML AMPUL.NEB NEB PRN (13:19)
[2024-03-28 19:24] LABS: Appearance,Urine Clear (Clear); Bacteria,Urine 0 /hpf (0); Bilirubin,Urine Negative (Negative); Color,Urine Yellow; Glucose,Urine (UA) Negative (Negative); Ketones,Urine Negative (Negative); Leukocyte Esterase,Urine Negative /uL (Negative); Mucus,Urine Few /hpf; Nitrate,Urine Negative (Negative); PH,Urine 5.5 (5.0-9.0); Protein,Urine 30 mg/dL (Negative); Urine Blood Negative ery/mcL (Negative); Urine Hyaline Cast 10 /lph (0-2); Urine RBC < 1 /hpf (0-3); Urine Squamous Epithelial Cell 5 /hpf (0-4); Urine WBC 1 /hpf (0-4); Urobilinogen,Urine Normal
[2024-03-28] MEDS: MUPIROCIN OINT 2% 22GM NARES SCH (21:39)
[2024-03-28] MEDS: SENNOSIDES 1 TABLET PO SCH (21:39)
[2024-03-28] MEDS: SIMVASTATIN 20 MG TABLET PO SCH (21:39)
[2024-03-28] MEDS: HEPARIN 5,000 UNIT/ML VIAL SQ SCH (21:39)
[2024-03-28] MEDS: Umeclidinium-Vilanterol [Anoro Ellipta] 62.5-25 INH SCH (23:06)
[2024-03-29] MEDS: ACETAMINOPHEN 325 MG TABLET PO PRN (04:21)
[2024-03-29 06:20] LABS: Basophils # (Auto) 0.06 K/mcL (0.00-0.30); Basophils % (Auto) 0.7 % (0.0-2.0); Eosinophils # (Auto) 0.29 K/mcL (0.00-0.70); Eosinophils % (Auto) 3.4 % (0.0-7.0); Hematocrit 29.7 % (34.1-44.9); Hemoglobin 8.9 g/dL (11.2-15.7); Lymphocytes # (Auto) 1.76 K/mcL (1.50-4.80); Lymphocytes % (Auto) 20.4 % (15.5-49.0); Mean Cell Volume 81.4 fL (80.0-100.0); Mean Platelet Volume 9.4 fL (8.8-12.5); Monocytes # (Auto) 0.98 K/mcL (0.10-0.90); Monocytes % (Auto) 11.4 % (1.0-12.0); Neutrophils % (Auto) 63.8 % (38.0-78.0); Platelet Count 260 K/mcL (140-440); RBC 3.65 M/mcL (3.59-5.38); Red Cell Distribution Width 19.1 % (11.5-14.5); WBC 8.6 K/mcL (4.5-11.0)
[2024-03-29 06:58] LABS: ALT/SGPT 13 U/L (<40); AST/SGOT 29 U/L (<32); Albumin 3.1 gm/dL (3.2-5.2); Albumin/Globulin Ratio 1.3 (1.0-2.3); Alkaline Phosphatase 103 U/L (39-117); Bilirubin,Direct < 0.2 mg/dL (0-0.3); Bilirubin,Total 0.2 mg/dL (0.1-1.0); Blood Urea Nitrogen 21 mg/dL (8-23); Calcium 8.9 mg/dL (8.6-10.4); Carbon Dioxide 24 mmol/L (22-30); Chloride 108 mmol/L (96-108); Globulin 2.4 gm/dL (2.2-3.7); Glomerular Filtration Rate 26; Glucose 158 mg/dL (70-105); Lactate Dehydrogenase 149 U/L (135-225); Phosphorous 3.6 mg/dL (2.5-4.5); Potassium 4.5 mmol/L (3.3-5.1); Sodium 142 mmol/L (133-145); Triglycerides 149 mg/dL (<150); Uric Acid 8.6 mg/dL (2.5-8.0)
[2024-03-29] MEDS ORDERED: [UNRECOGNIZED DRUG - OTHER] PO SCH (09:00)
[2024-03-29] MEDS ORDERED: DULOXETINE 60 MG PO SCH (09:00)
[2024-03-29] MEDS: LEVOTHYROXINE 50 MCG TABLET PO SCH (09:21)
[2024-03-29] MEDS: SPIRONOLACTONE 25 MG TABLET PO SCH (09:21)
[2024-03-29] MEDS: amLODIPine 5 MG TABLET PO SCH (09:21)
[2024-03-29] MEDS: METOPROLOL SUCCINATE 25 MG TAB.XL.24H PO SCH (09:22)
[2024-03-29] MEDS: ALLOPURINOL 300 MG TABLET PO SCH (09:22)
[2024-03-29] MEDS: DOXAZOSIN 4 MG TABLET PO SCH (09:22)
[2024-03-29] MEDS: FAMOTIDINE 20 MG TABLET PO SCH (09:22)
[2024-03-29] MEDS: DULoxetine 20 MG CAPSULE PO SCH (09:22)
[2024-03-29] MEDS: Mirabegron [Myrbetriq] 50 mg tablet extended release PO SCH (09:23)
[2024-03-29] MEDS: VITAMIN D3 125 MCG TABLET PO SCH (09:24)
[2024-03-29] MEDS: 0.9 % SODIUM CHLORIDE 250 ML IV SCH (13:45)
[2024-03-29] MEDS ORDERED: SUGAMMADEX SODIUM 200 MG/2 ML VIAL IV ONE (14:02)
[2024-03-29] MEDS ORDERED: fentaNYL 100 MCG/2 ML VIAL ONE (14:02)
[2024-03-29] MEDS ORDERED: PROPOFOL 200 MG/20 ML VIAL IV ONE (14:02)
[2024-03-29] MEDS ORDERED: KETAMINE 50 MG/ML Syringe IV ONE (14:02)
[2024-03-29] MEDS ORDERED: GLYCOPYRROLATE 0.2 MG/ML VIAL IV ONE (14:03)
[2024-03-29] MEDS ORDERED: DEXAMETHASONE 10 MG/ML VIAL ONE (14:03)
[2024-03-29] MEDS ORDERED: ONDANSETRON 4 MG/2 ML VIAL ONE (14:03)
[2024-03-29] MEDS ORDERED: ROCURONIUM 10 MG/ML ML IV ONE (14:08)
[2024-03-29] MEDS ORDERED: TRANEXAMIC ACID 1,000 MG/10 ML VIAL ONE (14:08)
[2024-03-29] MEDS ORDERED: ceFAZolin 1 GM VIAL ONE (15:29)
[2024-03-29] MEDS ORDERED: FAMOTIDINE/PF 20 MG/2 ML VIAL IV ONE (15:57)
[2024-03-29] MEDS ORDERED: HYDROcodone/APAP 10/325MG TABLET PO PRN (17:33)
[2024-03-29] MEDS ORDERED: FLEETS ADULT 1 DOSE ENEMA PR PRN (17:33)
[2024-03-29] MEDS ORDERED: fentaNYL 100 MCG/2 ML VIAL IV PRN (17:33)
[2024-03-29] MEDS ORDERED: MAGNESIUM HYDROXIDE 30 ML ORAL.SUSP PO PRN (17:33)
[2024-03-29] MEDS ORDERED: IPRATROPIUM/ALBUTEROL 3 ML AMPUL.NEB NEB PRN (17:33)
[2024-03-29] MEDS ORDERED: ONDANSETRON 4 MG/2 ML VIAL IV PRN (17:33)
[2024-03-29] MEDS ORDERED: HYDROmorphone 1 MG/ML SYRINGE IV PRN (17:33)
[2024-03-29] MEDS ORDERED: ACETAMINOPHEN 325 MG TABLET PO PRN (17:33)
[2024-03-29] MEDS: 0.9 % SODIUM CHLORIDE 1,000 ML IV SCH (17:59)
[2024-03-29] MEDS ORDERED: DEXMEDETOMIDINE HCL 200 MCG/2 ML VIAL ONE (18:50)
[2024-03-29] MEDS: 0.45 % SODIUM CHLORIDE 1,000 ML IV SCH (19:03)
[2024-03-29] MEDS: KETOROLAC 15 MG/ML VIAL IV SCH (19:06)
[2024-03-29] MEDS: TRANEXAMIC ACID 1,000 MG/10 ML VIAL IV SCH (19:31)
[2024-03-29] MEDS: SENNOSIDES 1 TABLET PO SCH (21:13)
[2024-03-29] MEDS: ASPIRIN 81 MG TAB.CHEW PO SCH (21:14)
[2024-03-29] MEDS: 0.9 % SODIUM CHLORIDE 10 ML SYRINGE IV SCH (21:15)
[2024-03-29] MEDS: ceFAZolin 1 GM VIAL IV SCH (23:09)
[2024-03-30 06:29] LABS: Basophils # (Auto) 0.01 K/mcL (0.00-0.30); Basophils % (Auto) 0.1 % (0.0-2.0); Eosinophils # (Auto) 0 K/mcL (0.00-0.70); Eosinophils % (Auto) 0 % (0.0-7.0); Hematocrit 27.3 % (34.1-44.9); Hemoglobin 8.2 g/dL (11.2-15.7); Lymphocytes # (Auto) 0.72 K/mcL (1.50-4.80); Lymphocytes % (Auto) 6.1 % (15.5-49.0); Mean Cell Volume 82.5 fL (80.0-100.0); Mean Platelet Volume 9.5 fL (8.8-12.5); Monocytes # (Auto) 0.41 K/mcL (0.10-0.90); Monocytes % (Auto) 3.5 % (1.0-12.0); Neutrophils % (Auto) 90.1 % (38.0-78.0); Platelet Count 244 K/mcL (140-440); RBC 3.31 M/mcL (3.59-5.38); Red Cell Distribution Width 18.9 % (11.5-14.5); WBC 11.8 K/mcL (4.5-11.0)
[2024-03-30 07:05] LABS: ALT/SGPT 13 U/L (<40); AST/SGOT 37 U/L (<32); Albumin 3.2 gm/dL (3.2-5.2); Albumin/Globulin Ratio 1.3 (1.0-2.3); Alkaline Phosphatase 99 U/L (39-117); Bilirubin,Direct < 0.2 mg/dL (0-0.3); Bilirubin,Total < 0.2 mg/dL (0.1-1.0); Blood Urea Nitrogen 22 mg/dL (8-23); Calcium 8.9 mg/dL (8.6-10.4); Carbon Dioxide 22 mmol/L (22-30); Chloride 108 mmol/L (96-108); Globulin 2.4 gm/dL (2.2-3.7); Glomerular Filtration Rate 32; Glucose 166 mg/dL (70-105); Lactate Dehydrogenase 219 U/L (135-225); Phosphorous 3.2 mg/dL (2.5-4.5); Potassium 5.2 mmol/L (3.3-5.1); Sodium 141 mmol/L (133-145); Triglycerides 73 mg/dL (<150); Uric Acid 7.4 mg/dL (2.5-8.0)
[2024-03-30] MEDS ORDERED: METOPROLOL TARTRATE 5 MG/5 ML VIAL IV PRN (08:27)
[2024-03-30] MEDS: TORSEMIDE 20 MG TABLET PO SCH (10:05)
[2024-03-31 06:31] LABS: Basophils # (Auto) 0.03 K/mcL (0.00-0.30); Basophils % (Auto) 0.3 % (0.0-2.0); Eosinophils # (Auto) 0.07 K/mcL (0.00-0.70); Eosinophils % (Auto) 0.7 % (0.0-7.0); Hematocrit 23.2 % (34.1-44.9); Hemoglobin 6.9 g/dL (11.2-15.7); Lymphocytes # (Auto) 1.33 K/mcL (1.50-4.80); Lymphocytes % (Auto) 13.7 % (15.5-49.0); Mean Cell Volume 81.1 fL (80.0-100.0); Mean Corpuscular HGB Conc 29.7 g/dL (31.0-36.0); Mean Platelet Volume 9.8 fL (8.8-12.5); Monocytes # (Auto) 1.15 K/mcL (0.10-0.90); Monocytes % (Auto) 11.8 % (1.0-12.0); Neutrophils % (Auto) 73.3 % (38.0-78.0); Platelet Count 227 K/mcL (140-440); RBC 2.86 M/mcL (3.59-5.38); Red Cell Distribution Width 19.2 % (11.5-14.5); WBC 9.7 K/mcL (4.5-11.0)
[2024-03-31 06:45] LABS: ALT/SGPT < 5 U/L (<40); AST/SGOT 36 U/L (<32); Albumin/Globulin Ratio 1.3 (1.0-2.3); Alkaline Phosphatase 87 U/L (39-117); Bilirubin,Direct < 0.2 mg/dL (0-0.3); Bilirubin,Total 0.3 mg/dL (0.1-1.0); Blood Urea Nitrogen 27 mg/dL (8-23); Calcium 8.8 mg/dL (8.6-10.4); Carbon Dioxide 24 mmol/L (22-30); Chloride 109 mmol/L (96-108); Globulin 2.3 gm/dL (2.2-3.7); Glomerular Filtration Rate 30; Glucose 120 mg/dL (70-105); Lactate Dehydrogenase 171 U/L (135-225); Phosphorous 2.8 mg/dL (2.5-4.5); Potassium 4.2 mmol/L (3.3-5.1); Sodium 143 mmol/L (133-145); Triglycerides 89 mg/dL (<150); Uric Acid 7.5 mg/dL (2.5-8.0)
[2024-03-31] MEDS: 0.9 % SODIUM CHLORIDE 250 ML IV SCH (10:13)
[2024-04-01 06:26] LABS: Hematocrit 27.7 % (34.1-44.9); Hemoglobin 8.5 g/dL (11.2-15.7)
[2024-04-01 06:35] LABS: Blood Urea Nitrogen 31 mg/dL (8-23); Calcium 9.1 mg/dL (8.6-10.4); Carbon Dioxide 24 mmol/L (22-30); Chloride 105 mmol/L (96-108); Glomerular Filtration Rate 32; Glucose 121 mg/dL (70-105); Potassium 3.8 mmol/L (3.3-5.1); Sodium 143 mmol/L (133-145)
== END 2024-04-01 12:15 | disposition home or self-care (01) | DRG 470 ==
LOC: ED 19:18 → MEDSUR 03-28 00:26
PROVIDERS: ADMIT Student in an Organized Health Care Education/Training Program; ATTEND Internal Medicine

== ENCOUNTER 2024-04-30 17:56 | Inpatient (IN) ==
[2024-04-30 18:20] LABS: Basophils # (Auto) 0.04 K/mcL (0.00-0.30); Basophils % (Auto) 0.3 % (0.0-2.0); Eosinophils # (Auto) 0.01 K/mcL (0.00-0.70); Eosinophils % (Auto) 0.1 % (0.0-7.0); Hematocrit 32.7 % (34.1-44.9); Hemoglobin 9.9 g/dL (11.2-15.7); Lymphocytes # (Auto) 2.17 K/mcL (1.50-4.80); Mean Cell Volume 80.7 fL (80.0-100.0); Mean Corpuscular HGB Conc 30.3 g/dL (31.0-36.0); Mean Platelet Volume 9.9 fL (8.8-12.5); Monocytes # (Auto) 1.69 K/mcL (0.10-0.90); Monocytes % (Auto) 11.7 % (1.0-12.0); Neutrophils % (Auto) 71.7 % (38.0-78.0); Platelet Count 502 K/mcL (140-440); RBC 4.05 M/mcL (3.59-5.38); Red Cell Distribution Width 18.8 % (11.5-14.5); WBC 14.5 K/mcL (4.5-11.0)
[2024-04-30] MEDS: ASPIRIN 81 MG TAB.CHEW CHEWED ONE (18:28)
[2024-04-30 18:43] LABS: ALT/SGPT 29 U/L (<40); AST/SGOT 57 U/L (<32); Albumin 3.2 gm/dL (3.2-5.2); Albumin/Globulin Ratio 0.9 (1.0-2.3); Alkaline Phosphatase 168 U/L (39-117); Bilirubin,Total 0.5 mg/dL (0.1-1.0); Blood Urea Nitrogen 46 mg/dL (8-23); Calcium 9.3 mg/dL (8.6-10.4); Carbon Dioxide 22 mmol/L (22-30); Chloride 101 mmol/L (96-108); Globulin 3.7 gm/dL (2.2-3.7); Glomerular Filtration Rate 17; Glucose 191 mg/dL (70-105); Potassium 4.2 mmol/L (3.3-5.1); Sodium 141 mmol/L (133-145)
[2024-04-30] MEDS: 0.9 % SODIUM CHLORIDE 1,000 ML IV ONE (18:54)
[2024-04-30] MEDS: ceFAZolin 1 GM VIAL IV ONE (21:37)
[2024-05-01 00:32] LABS: Appearance,Urine TURBID (Clear); Bacteria,Urine MOD /hpf (0); Bilirubin,Urine Negative (Negative); Color,Urine YELLOW; Glucose,Urine (UA) Negative (Negative); Ketones,Urine Negative (Negative); Leukocyte Esterase,Urine 250 /uL (Negative); Mucus,Urine FEW /hpf; Nitrate,Urine POS (Negative); Protein,Urine 30 mg/dL (Negative); Urine Blood 0.03 mg/dL (Negative); Urine Hyaline Cast 19 /lph (0-2); Urine RBC 14 /hpf (0-3); Urine Squamous Epithelial Cell 0 /hpf (0-4); Urine WBC > 182 /hpf (0-4); Urobilinogen,Urine Negative
[2024-05-01] MEDS ORDERED: ONDANSETRON 4 MG/2 ML VIAL IV PRN ×2 (00:36→08:04)
[2024-05-01] MEDS ORDERED: HYDROmorphone 0.5 MG/0.5 ML SYRINGE IV PRN (00:41)
[2024-05-01] MEDS ORDERED: ACETAMINOPHEN 325 MG TABLET PO PRN (00:41)
[2024-05-01] MEDS: 0.9 % SODIUM CHLORIDE 1,000 ML IV SCH ×2 (01:50→08:28)
[2024-05-01] MEDS: VANCOMYCIN 1,000 MG in 0.9 % SODIUM CHLORIDE 250 ML IV SCH (01:55)
[2024-05-01] MEDS: AMPICILLIN SODIUM/SULBACTAM NA 1.5 GM in 0.9 % SODIUM CHLORIDE 50 ML IV SCH (02:01)
[2024-05-01] MEDS: 0.9 % SODIUM CHLORIDE 10 ML SYRINGE IV SCH ×2 (05:10→13:18)
[2024-05-01] MEDS ORDERED: POTASSIUM CHLORIDE 40 MEQ in DEXTROSE 5% IN WATER 500 ML IV PRN (08:04)
[2024-05-01] MEDS ORDERED: METOCLOPRAMIDE 10 MG/2 ML VIAL IV PRN (08:04)
[2024-05-01] MEDS ORDERED: IPRATROPIUM/ALBUTEROL 3 ML AMPUL.NEB NEB PRN (08:04)
[2024-05-01] MEDS ORDERED: MAGNESIUM SULFATE 2 GM/50 ML BAG IV PRN (08:04)
[2024-05-01] MEDS ORDERED: POLYETHYLENE GLYCOL 3350 17 GM PACKET PO PRN (08:04)
[2024-05-01] MEDS ORDERED: POTASSIUM CHLORIDE 20 MEQ TABLET PO PRN ×2 (08:04)
[2024-05-01] MEDS: HEPARIN 5,000 UNIT/ML VIAL SQ SCH (08:30)
[2024-05-01] MEDS: DOCUSATE SODIUM 100 MG CAPSULE PO SCH (08:33)
[2024-05-01] MEDS ORDERED: VANCOMYCIN PER PHARMACY IV SCH (09:07)
[2024-05-01 18:28] LABS: Appearance,Synovial Fluid Turbid; Color,Synovial Fluid Red; Neutrophils,Synovial Fluid 99 % (0-25); Nucleated Cells,Synovial Fld 150350 /cumm; Other Cells,Synovial Fluid 1 %
[2024-05-01] MEDS ORDERED: ENALAPRILAT 1.25 MG/ML VIAL IV PRN (19:07)
[2024-05-01] MEDS: SENNOSIDES 1 TABLET PO SCH (20:28)
[2024-05-01] MEDS: PREGABALIN 25 MG CAPSULE PO SCH (20:31)
[2024-05-02 06:11] LABS: ALT/SGPT 16 U/L (<40); AST/SGOT 37 U/L (<32); Albumin 2.7 gm/dL (3.2-5.2); Albumin/Globulin Ratio 0.9 (1.0-2.3); Alkaline Phosphatase 132 U/L (39-117); Bilirubin,Direct < 0.2 mg/dL (0-0.3); Bilirubin,Total 0.2 mg/dL (0.1-1.0); Blood Urea Nitrogen 28 mg/dL (8-23); Calcium 8.9 mg/dL (8.6-10.4); Carbon Dioxide 22 mmol/L (22-30); Chloride 106 mmol/L (96-108); Globulin 3.1 gm/dL (2.2-3.7); Glomerular Filtration Rate 38; Glucose 107 mg/dL (70-105); Lactate Dehydrogenase 161 U/L (135-225); Phosphorous 2.8 mg/dL (2.5-4.5); Sodium 140 mmol/L (133-145); Triglycerides 112 mg/dL (<150); Uric Acid 8.9 mg/dL (2.5-8.0)
[2024-05-02 07:01] LABS: Basophils # (Auto) 0.05 K/mcL (0.00-0.30); Basophils % (Auto) 0.5 % (0.0-2.0); Hematocrit 26.5 % (34.1-44.9); Hemoglobin 7.8 g/dL (11.2-15.7); Lymphocytes # (Auto) 1.75 K/mcL (1.50-4.80); Lymphocytes % (Auto) 17.2 % (15.5-49.0); Mean Cell Volume 82.6 fL (80.0-100.0); Mean Corpuscular HGB Conc 29.4 g/dL (31.0-36.0); Mean Platelet Volume 9.6 fL (8.8-12.5); Monocytes # (Auto) 1.18 K/mcL (0.10-0.90); Monocytes % (Auto) 11.6 % (1.0-12.0); Neutrophils % (Auto) 68.3 % (38.0-78.0); Platelet Count 444 K/mcL (140-440); RBC 3.21 M/mcL (3.59-5.38); Red Cell Distribution Width 18.6 % (11.5-14.5); WBC 10.2 K/mcL (4.5-11.0)
[2024-05-02 07:40] LABS: Vancomycin,Random 6.9 ug/mL
[2024-05-02] MEDS: 0.9 % SODIUM CHLORIDE 1,000 ML IV SCH (08:00)
[2024-05-02] MEDS: amLODIPine 5 MG TABLET PO SCH (09:53)
[2024-05-02] MEDS: VANCOMYCIN 1,000 MG in 0.9 % SODIUM CHLORIDE 250 ML IV SCH (09:53)
[2024-05-02] MEDS: METOPROLOL SUCCINATE 25 MG TAB.XL.24H PO SCH (09:53)
[2024-05-02] MEDS: DULoxetine 30 MG CAPSULE PO SCH (09:54)
[2024-05-02] MEDS: LEVOTHYROXINE 50 MCG TABLET PO SCH (09:54)
[2024-05-02] MEDS: DOXAZOSIN 4 MG TABLET PO SCH (09:54)
[2024-05-02] MEDS: FAMOTIDINE 20 MG TABLET PO SCH (09:59)
[2024-05-02] MEDS: PIPERACILLIN SODIUM/TAZOBACTAM 3.375 GM in DEXTROSE 5% IN WATER 50 ML IV ONE (11:10)
[2024-05-02] MEDS: PIPERACILLIN SODIUM/TAZOBACTAM 3.375 GM in DEXTROSE 5% IN WATER 100 ML IV SCH (14:40)
[2024-05-03 06:09] LABS: Basophils # (Auto) 0.07 K/mcL (0.00-0.30); Basophils % (Auto) 0.8 % (0.0-2.0); Eosinophils # (Auto) 0.18 K/mcL (0.00-0.70); Hematocrit 25.4 % (34.1-44.9); Hemoglobin 7.4 g/dL (11.2-15.7); Lymphocytes # (Auto) 1.78 K/mcL (1.50-4.80); Lymphocytes % (Auto) 20.1 % (15.5-49.0); Mean Cell Volume 83.3 fL (80.0-100.0); Mean Corpuscular HGB Conc 29.1 g/dL (31.0-36.0); Mean Platelet Volume 9.9 fL (8.8-12.5); Monocytes # (Auto) 1.03 K/mcL (0.10-0.90); Monocytes % (Auto) 11.6 % (1.0-12.0); Platelet Count 441 K/mcL (140-440); RBC 3.05 M/mcL (3.59-5.38); Red Cell Distribution Width 18.8 % (11.5-14.5); WBC 8.9 K/mcL (4.5-11.0)
[2024-05-03 06:23] LABS: ALT/SGPT 12 U/L (<40); AST/SGOT 31 U/L (<32); Albumin 2.7 gm/dL (3.2-5.2); Alkaline Phosphatase 114 U/L (39-117); Bilirubin,Direct < 0.2 mg/dL (0-0.3); Bilirubin,Total 0.2 mg/dL (0.1-1.0); Blood Urea Nitrogen 23 mg/dL (8-23); Calcium 9.1 mg/dL (8.6-10.4); Carbon Dioxide 23 mmol/L (22-30); Chloride 110 mmol/L (96-108); Globulin 2.6 gm/dL (2.2-3.7); Glomerular Filtration Rate 42; Glucose 111 mg/dL (70-105); Lactate Dehydrogenase 145 U/L (135-225); Phosphorous 2.7 mg/dL (2.5-4.5); Sodium 142 mmol/L (133-145); Triglycerides 120 mg/dL (<150); Uric Acid 5.4 mg/dL (2.5-8.0)
[2024-05-03] MEDS: traMADol 50 MG TABLET PO PRN (08:31)
[2024-05-03] MEDS: CIPROFLOXACIN 500 MG TABLET PO SCH (21:14)
[2024-05-04 06:07] LABS: Basophils # (Auto) 0.07 K/mcL (0.00-0.30); Basophils % (Auto) 0.8 % (0.0-2.0); Eosinophils % (Auto) 2.3 % (0.0-7.0); Hematocrit 26.6 % (34.1-44.9); Hemoglobin 7.7 g/dL (11.2-15.7); Lymphocytes # (Auto) 1.91 K/mcL (1.50-4.80); Lymphocytes % (Auto) 22.2 % (15.5-49.0); Mean Cell Volume 83.1 fL (80.0-100.0); Mean Corpuscular HGB Conc 28.9 g/dL (31.0-36.0); Mean Platelet Volume 9.7 fL (8.8-12.5); Monocytes # (Auto) 0.95 K/mcL (0.10-0.90); Monocytes % (Auto) 11.1 % (1.0-12.0); Neutrophils % (Auto) 62.2 % (38.0-78.0); Platelet Count 433 K/mcL (140-440); Red Cell Distribution Width 18.8 % (11.5-14.5); WBC 8.6 K/mcL (4.5-11.0)
[2024-05-04 06:32] LABS: Blood Urea Nitrogen 19 mg/dL (8-23); Calcium 8.7 mg/dL (8.6-10.4); Carbon Dioxide 22 mmol/L (22-30); Chloride 108 mmol/L (96-108); Glomerular Filtration Rate 47; Glucose 94 mg/dL (70-105); Potassium 3.9 mmol/L (3.3-5.1); Sodium 140 mmol/L (133-145)
[2024-05-04 07:04] LABS: C-Reactive Protein 7.23 mg/dL (0.03-0.80)
[2024-05-04] MEDS ORDERED: LIDOCAINE 1% 20 ML VIAL SQ ONE (11:20)
[2024-05-04] MEDS: 0.9 % SODIUM CHLORIDE 10 ML SYRINGE IV SCH (21:01)
[2024-05-05 06:16] LABS: Basophils # (Auto) 0.05 K/mcL (0.00-0.30); Basophils % (Auto) 0.6 % (0.0-2.0); Eosinophils # (Auto) 0.14 K/mcL (0.00-0.70); Eosinophils % (Auto) 1.7 % (0.0-7.0); Hematocrit 26.8 % (34.1-44.9); Hemoglobin 7.8 g/dL (11.2-15.7); Lymphocytes # (Auto) 2.01 K/mcL (1.50-4.80); Lymphocytes % (Auto) 24.3 % (15.5-49.0); Mean Cell Volume 82.7 fL (80.0-100.0); Mean Corpuscular HGB Conc 29.1 g/dL (31.0-36.0); Mean Platelet Volume 9.5 fL (8.8-12.5); Monocytes # (Auto) 1.04 K/mcL (0.10-0.90); Monocytes % (Auto) 12.6 % (1.0-12.0); Neutrophils % (Auto) 58.5 % (38.0-78.0); Platelet Count 413 K/mcL (140-440); RBC 3.24 M/mcL (3.59-5.38); Red Cell Distribution Width 18.9 % (11.5-14.5); WBC 8.3 K/mcL (4.5-11.0)
[2024-05-05 06:29] LABS: Blood Urea Nitrogen 18 mg/dL (8-23); Calcium 9.1 mg/dL (8.6-10.4); Carbon Dioxide 23 mmol/L (22-30); Chloride 109 mmol/L (96-108); Glomerular Filtration Rate 53; Glucose 94 mg/dL (70-105); Potassium 3.7 mmol/L (3.3-5.1); Sodium 143 mmol/L (133-145)
[2024-05-05 06:30] LABS: C-Reactive Protein 5.99 mg/dL (0.03-0.80)
[2024-05-05] MEDS: CETIRIZINE 10 MG TABLET PO SCH (17:15)
[2024-05-05] MEDS: POTASSIUM CHLORIDE 20 MEQ/10 ML VIAL IV ONE (21:49)
[2024-05-05] MEDS: morphine 2 MG/ML VIAL IV PRN (22:26)
[2024-05-06 06:56] LABS: Basophils # (Auto) 0.09 K/mcL (0.00-0.30); Eosinophils # (Auto) 0.21 K/mcL (0.00-0.70); Eosinophils % (Auto) 2.4 % (0.0-7.0); Hematocrit 25.4 % (34.1-44.9); Hemoglobin 7.4 g/dL (11.2-15.7); Lymphocytes # (Auto) 2.15 K/mcL (1.50-4.80); Lymphocytes % (Auto) 24.4 % (15.5-49.0); Mean Cell Volume 82.5 fL (80.0-100.0); Mean Corpuscular HGB Conc 29.1 g/dL (31.0-36.0); Mean Platelet Volume 9.5 fL (8.8-12.5); Monocytes % (Auto) 13.6 % (1.0-12.0); Neutrophils % (Auto) 56.1 % (38.0-78.0); Platelet Count 391 K/mcL (140-440); RBC 3.08 M/mcL (3.59-5.38); Red Cell Distribution Width 18.8 % (11.5-14.5); WBC 8.8 K/mcL (4.5-11.0)
[2024-05-06 07:11] LABS: Blood Urea Nitrogen 15 mg/dL (8-23); C-Reactive Protein 5.77 mg/dL (0.03-0.80); Calcium 9.1 mg/dL (8.6-10.4); Carbon Dioxide 23 mmol/L (22-30); Chloride 108 mmol/L (96-108); Glomerular Filtration Rate 53; Glucose 103 mg/dL (70-105); Potassium 3.6 mmol/L (3.3-5.1); Sodium 141 mmol/L (133-145)
[2024-05-07 06:07] LABS: Basophils # (Auto) 0.07 K/mcL (0.00-0.30); Basophils % (Auto) 0.8 % (0.0-2.0); Eosinophils # (Auto) 0.14 K/mcL (0.00-0.70); Eosinophils % (Auto) 1.5 % (0.0-7.0); Hematocrit 25.9 % (34.1-44.9); Hemoglobin 7.5 g/dL (11.2-15.7); Lymphocytes # (Auto) 1.45 K/mcL (1.50-4.80); Mean Cell Volume 82.5 fL (80.0-100.0); Mean Platelet Volume 9.8 fL (8.8-12.5); Monocytes # (Auto) 1.16 K/mcL (0.10-0.90); Monocytes % (Auto) 12.8 % (1.0-12.0); Platelet Count 398 K/mcL (140-440); RBC 3.14 M/mcL (3.59-5.38); WBC 9.1 K/mcL (4.5-11.0)
[2024-05-07 06:33] LABS: C-Reactive Protein 8.01 mg/dL (0.03-0.80)
[2024-05-07 06:39] LABS: Blood Urea Nitrogen 19 mg/dL (8-23); Calcium 9.3 mg/dL (8.6-10.4); Carbon Dioxide 23 mmol/L (22-30); Chloride 108 mmol/L (96-108); Glomerular Filtration Rate 47; Glucose 124 mg/dL (70-105); Potassium 3.9 mmol/L (3.3-5.1); Sodium 142 mmol/L (133-145)
[2024-05-07] MEDS: VANCOMYCIN 750 MG in 0.9 % SODIUM CHLORIDE 250 ML IV SCH (12:04)
[2024-05-07] MEDS: ACETAMINOPHEN 325 MG TABLET PO PRN (21:19)
[2024-05-08 06:54] LABS: Basophils # (Auto) 0.07 K/mcL (0.00-0.30); Basophils % (Auto) 0.9 % (0.0-2.0); Eosinophils # (Auto) 0.18 K/mcL (0.00-0.70); Eosinophils % (Auto) 2.3 % (0.0-7.0); Hematocrit 26.8 % (34.1-44.9); Hemoglobin 7.7 g/dL (11.2-15.7); Lymphocytes # (Auto) 1.79 K/mcL (1.50-4.80); Lymphocytes % (Auto) 22.4 % (15.5-49.0); Mean Cell Volume 83.8 fL (80.0-100.0); Mean Corpuscular HGB Conc 28.7 g/dL (31.0-36.0); Mean Platelet Volume 9.8 fL (8.8-12.5); Monocytes # (Auto) 0.97 K/mcL (0.10-0.90); Monocytes % (Auto) 12.1 % (1.0-12.0); Neutrophils % (Auto) 59.5 % (38.0-78.0); Platelet Count 416 K/mcL (140-440); Red Cell Distribution Width 19.5 % (11.5-14.5)
[2024-05-08 06:59] LABS: Blood Urea Nitrogen 22 mg/dL (8-23); C-Reactive Protein 8.54 mg/dL (0.03-0.80); Calcium 9.2 mg/dL (8.6-10.4); Carbon Dioxide 26 mmol/L (22-30); Chloride 107 mmol/L (96-108); Glomerular Filtration Rate 47; Glucose 100 mg/dL (70-105); Potassium 3.7 mmol/L (3.3-5.1); Sodium 143 mmol/L (133-145)
[2024-05-08 14:53] LABS: C-Reactive Protein 8.65 mg/dL (0.03-0.80); Creatine Kinase 12 U/L (24-170)
[2024-05-09 05:52] LABS: Basophils # (Auto) 0.05 K/mcL (0.00-0.30); Basophils % (Auto) 0.5 % (0.0-2.0); Eosinophils # (Auto) 0.16 K/mcL (0.00-0.70); Eosinophils % (Auto) 1.7 % (0.0-7.0); Hematocrit 26.3 % (34.1-44.9); Hemoglobin 7.7 g/dL (11.2-15.7); Lymphocytes # (Auto) 1.82 K/mcL (1.50-4.80); Lymphocytes % (Auto) 18.8 % (15.5-49.0); Mean Cell Volume 83.5 fL (80.0-100.0); Mean Corpuscular HGB Conc 29.3 g/dL (31.0-36.0); Mean Platelet Volume 9.7 fL (8.8-12.5); Monocytes # (Auto) 1.07 K/mcL (0.10-0.90); Monocytes % (Auto) 11.1 % (1.0-12.0); Platelet Count 392 K/mcL (140-440); RBC 3.15 M/mcL (3.59-5.38); Red Cell Distribution Width 19.9 % (11.5-14.5); WBC 9.7 K/mcL (4.5-11.0)
[2024-05-09 06:19] LABS: C-Reactive Protein 8.36 mg/dL (0.03-0.80)
[2024-05-09 06:24] LABS: ALT/SGPT 15 U/L (<40); AST/SGOT 30 U/L (<32); Albumin 2.9 gm/dL (3.2-5.2); Alkaline Phosphatase 125 U/L (39-117); Bilirubin,Total < 0.2 mg/dL (0.1-1.0); Blood Urea Nitrogen 27 mg/dL (8-23); Calcium 9.4 mg/dL (8.6-10.4); Carbon Dioxide 26 mmol/L (22-30); Chloride 107 mmol/L (96-108); Globulin 2.8 gm/dL (2.2-3.7); Glomerular Filtration Rate 53; Glucose 127 mg/dL (70-105); Potassium 4.2 mmol/L (3.3-5.1); Sodium 142 mmol/L (133-145)
[2024-05-09 11:23] VITALS: TEMP 97.7
[2024-05-09] MEDS ORDERED: DAPTOmycin 500 MG VIAL IV SCH (12:00)
[2024-05-09] MEDS: DAPTOmycin 500 MG VIAL IV SCH (12:15)
[2024-05-09 15:09] VITALS: O2SAT 93
== END 2024-05-09 14:34 | disposition home health service (06) | DRG 559 ==
LOC: ED 17:56 → MEDSUR 05-01 01:26
PROVIDERS: ADMIT Internal Medicine; ATTEND Student in an Organized Health Care Education/Training Program

== ENCOUNTER 2024-05-09 15:26 | Inpatient (IN) ==
[2024-05-09 19:26] LABS: Basophils # (Auto) 0.06 K/mcL (0.00-0.30); Basophils % (Auto) 0.6 % (0.0-2.0); Eosinophils # (Auto) 0.16 K/mcL (0.00-0.70); Eosinophils % (Auto) 1.7 % (0.0-7.0); Hemoglobin 7.6 g/dL (11.2-15.7); Lymphocytes % (Auto) 17.8 % (15.5-49.0); Mean Cell Volume 82.5 fL (80.0-100.0); Mean Corpuscular HGB Conc 29.2 g/dL (31.0-36.0); Mean Platelet Volume 9.4 fL (8.8-12.5); Monocytes # (Auto) 1.08 K/mcL (0.10-0.90); Monocytes % (Auto) 11.3 % (1.0-12.0); Neutrophils % (Auto) 67.1 % (38.0-78.0); Platelet Count 369 K/mcL (140-440); RBC 3.15 M/mcL (3.59-5.38); Red Cell Distribution Width 19.9 % (11.5-14.5); WBC 9.5 K/mcL (4.5-11.0)
[2024-05-09 19:39] LABS: Blood Urea Nitrogen 30 mg/dL (8-23); Calcium 9.3 mg/dL (8.6-10.4); Carbon Dioxide 26 mmol/L (22-30); Chloride 106 mmol/L (96-108); Glomerular Filtration Rate 47; Glucose 127 mg/dL (70-105); Potassium 4.3 mmol/L (3.3-5.1); Sodium 142 mmol/L (133-145)
[2024-05-09] MEDS ORDERED: DEXTROSE 50% 50 ML VIAL IV PRN (22:31)
[2024-05-09] MEDS ORDERED: guaiFENesin/CODEINE 10 ML UDC PO PRN (22:31)
[2024-05-09] MEDS ORDERED: IPRATROPIUM/ALBUTEROL 3 ML AMPUL.NEB NEB PRN (22:31)
[2024-05-09] MEDS ORDERED: DEXTROSE 31 GM ORAL.SUSP PO PRN (22:31)
[2024-05-09] MEDS ORDERED: ONDANSETRON 4 MG/2 ML VIAL IV PRN (22:31)
[2024-05-09] MEDS: traMADol 50 MG TABLET PO PRN (23:26)
[2024-05-10] MEDS: 0.9 % SODIUM CHLORIDE 10 ML SYRINGE IV SCH ×2 (01:11→08:17)
[2024-05-10 06:57] LABS: Basophils # (Auto) 0.08 K/mcL (0.00-0.30); Basophils % (Auto) 0.9 % (0.0-2.0); Eosinophils % (Auto) 2.3 % (0.0-7.0); Hematocrit 26.3 % (34.1-44.9); Hemoglobin 7.5 g/dL (11.2-15.7); Lymphocytes # (Auto) 1.43 K/mcL (1.50-4.80); Lymphocytes % (Auto) 16.2 % (15.5-49.0); Mean Cell Volume 83.8 fL (80.0-100.0); Mean Corpuscular HGB Conc 28.5 g/dL (31.0-36.0); Mean Platelet Volume 9.6 fL (8.8-12.5); Monocytes # (Auto) 1.02 K/mcL (0.10-0.90); Monocytes % (Auto) 11.6 % (1.0-12.0); Neutrophils % (Auto) 67.6 % (38.0-78.0); Platelet Count 381 K/mcL (140-440); RBC 3.14 M/mcL (3.59-5.38); WBC 8.8 K/mcL (4.5-11.0)
[2024-05-10 07:23] LABS: ALT/SGPT 16 U/L (<40); AST/SGOT 32 U/L (<32); Albumin/Globulin Ratio 1.1 (1.0-2.3); Alkaline Phosphatase 136 U/L (39-117); Bilirubin,Total 0.2 mg/dL (0.1-1.0); Blood Urea Nitrogen 25 mg/dL (8-23); C-Reactive Protein 8.36 mg/dL (0.03-0.80); Calcium 9.4 mg/dL (8.6-10.4); Carbon Dioxide 25 mmol/L (22-30); Chloride 106 mmol/L (96-108); Globulin 2.8 gm/dL (2.2-3.7); Glomerular Filtration Rate 47; Glucose 107 mg/dL (70-105); Potassium 4.3 mmol/L (3.3-5.1); Sodium 142 mmol/L (133-145)
[2024-05-10] MEDS: INSULIN LISPRO 1 UNIT/0.01 ML UNIT SQ SCH (07:52)
[2024-05-10] MEDS: BENZONATATE 100 MG CAPSULE PO SCH (08:12)
[2024-05-10] MEDS: ENOXAPARIN 40 MG/0.4 ML SYRINGE SQ SCH (08:13)
[2024-05-10] MEDS: DOCUSATE SODIUM 100 MG CAPSULE PO SCH (08:13)
[2024-05-10] MEDS: DAPTOmycin 500 MG VIAL IV SCH (11:57)
[2024-05-10] MEDS ORDERED: IPRATROPIUM 2.5 ML AMPUL.NEB NEB PRN (14:48)
[2024-05-10] MEDS ORDERED: FLUTICASONE PROPIONATE 250 MCG INH PRN (15:15)
[2024-05-10] MEDS: ACETAMINOPHEN 325 MG TABLET PO PRN (15:44)
[2024-05-10] MEDS: SENNOSIDES 1 TABLET PO SCH (20:41)
[2024-05-10] MEDS: PREGABALIN 75 MG CAPSULE PO SCH (20:47)
[2024-05-10] MEDS: SIMVASTATIN 20 MG TABLET PO SCH (20:47)
[2024-05-10] MEDS: Umeclidinium-Vilanterol [Anoro Ellipta] 62.5-25 mcg Inhaler INH SCH (20:54)
[2024-05-10] MEDS: diphenhydrAMINE 50 MG/ML VIAL IV ONE (23:38)
[2024-05-11] MEDS: diphenhydrAMINE 50 MG/ML VIAL ONE (00:17)
[2024-05-11 06:48] LABS: Basophils # (Auto) 0.05 K/mcL (0.00-0.30); Basophils % (Auto) 0.7 % (0.0-2.0); Eosinophils # (Auto) 0.21 K/mcL (0.00-0.70); Eosinophils % (Auto) 2.8 % (0.0-7.0); Hematocrit 27.2 % (34.1-44.9); Hemoglobin 7.8 g/dL (11.2-15.7); Lymphocytes # (Auto) 2.11 K/mcL (1.50-4.80); Lymphocytes % (Auto) 28.1 % (15.5-49.0); Mean Cell Volume 83.7 fL (80.0-100.0); Mean Corpuscular HGB Conc 28.7 g/dL (31.0-36.0); Mean Platelet Volume 9.6 fL (8.8-12.5); Monocytes # (Auto) 0.88 K/mcL (0.10-0.90); Monocytes % (Auto) 11.7 % (1.0-12.0); Neutrophils % (Auto) 55.6 % (38.0-78.0); Platelet Count 397 K/mcL (140-440); RBC 3.25 M/mcL (3.59-5.38); Red Cell Distribution Width 19.8 % (11.5-14.5); WBC 7.5 K/mcL (4.5-11.0)
[2024-05-11 07:32] LABS: C-Reactive Protein 8.16 mg/dL (0.03-0.80)
[2024-05-11 07:37] LABS: ALT/SGPT 17 U/L (<40); AST/SGOT 31 U/L (<32); Alkaline Phosphatase 141 U/L (39-117); Bilirubin,Total 0.3 mg/dL (0.1-1.0); Blood Urea Nitrogen 29 mg/dL (8-23); Calcium 9.3 mg/dL (8.6-10.4); Carbon Dioxide 27 mmol/L (22-30); Chloride 106 mmol/L (96-108); Globulin 3.1 gm/dL (2.2-3.7); Glomerular Filtration Rate 35; Glucose 105 mg/dL (70-105); Potassium 4.4 mmol/L (3.3-5.1); Sodium 144 mmol/L (133-145)
[2024-05-11] MEDS: LEVOTHYROXINE 50 MCG TABLET PO SCH (07:42)
[2024-05-11] MEDS: ASPIRIN 81 MG TAB.CHEW PO SCH (09:27)
[2024-05-11] MEDS: VITAMIN D3 125 MCG TABLET PO SCH (09:27)
[2024-05-11] MEDS: METOPROLOL SUCCINATE 25 MG TAB.XL.24H PO SCH (09:28)
[2024-05-11] MEDS: FAMOTIDINE 20 MG TABLET PO SCH (09:28)
[2024-05-11] MEDS: amLODIPine 5 MG TABLET PO SCH (09:28)
[2024-05-11] MEDS: DOXAZOSIN 4 MG TABLET PO SCH (09:28)
[2024-05-11] MEDS: DULoxetine 20 MG CAPSULE PO SCH (09:29)
[2024-05-11] MEDS: SPIRONOLACTONE 25 MG TABLET PO SCH (09:29)
[2024-05-11] MEDS: DULoxetine 30 MG CAPSULE PO SCH (09:29)
[2024-05-11] MEDS: Mirabegron [Myrbetriq] 50 mg tablet extended release PO SCH (09:30)
[2024-05-11] MEDS: hydrOXYzine 25 MG TABLET PO ONE (11:02)
[2024-05-11] MEDS: CETIRIZINE 10 MG TABLET PO SCH (11:03)
[2024-05-11] MEDS: NYSTATIN POWDER BOTTLE 15GM TOPICAL SCH (15:06)
[2024-05-11] MEDS: hydrOXYzine 25 MG TABLET PO PRN (22:32)
[2024-05-12 06:01] LABS: Basophils # (Auto) 0.06 K/mcL (0.00-0.30); Basophils % (Auto) 0.6 % (0.0-2.0); Eosinophils % (Auto) 2.1 % (0.0-7.0); Hematocrit 26.5 % (34.1-44.9); Hemoglobin 7.6 g/dL (11.2-15.7); Lymphocytes # (Auto) 2.37 K/mcL (1.50-4.80); Lymphocytes % (Auto) 25.4 % (15.5-49.0); Mean Cell Volume 84.1 fL (80.0-100.0); Mean Corpuscular HGB Conc 28.7 g/dL (31.0-36.0); Mean Platelet Volume 9.4 fL (8.8-12.5); Monocytes # (Auto) 1.01 K/mcL (0.10-0.90); Monocytes % (Auto) 10.8 % (1.0-12.0); Neutrophils % (Auto) 60.3 % (38.0-78.0); Platelet Count 363 K/mcL (140-440); RBC 3.15 M/mcL (3.59-5.38); Red Cell Distribution Width 20.1 % (11.5-14.5); WBC 9.3 K/mcL (4.5-11.0)
[2024-05-12 06:24] LABS: ALT/SGPT 15 U/L (<40); AST/SGOT 29 U/L (<32); Albumin 3.1 gm/dL (3.2-5.2); Albumin/Globulin Ratio 1.1 (1.0-2.3); Alkaline Phosphatase 138 U/L (39-117); Bilirubin,Total 0.2 mg/dL (0.1-1.0); Blood Urea Nitrogen 34 mg/dL (8-23); C-Reactive Protein 5.84 mg/dL (0.03-0.80); Calcium 9.3 mg/dL (8.6-10.4); Carbon Dioxide 28 mmol/L (22-30); Chloride 106 mmol/L (96-108); Globulin 2.8 gm/dL (2.2-3.7); Glomerular Filtration Rate 30; Glucose 110 mg/dL (70-105); Potassium 4.8 mmol/L (3.3-5.1); Sodium 144 mmol/L (133-145)
[2024-05-12] MEDS: LACTATED RINGERS 1,000 ML IV SCH ×2 (07:34→16:14)
[2024-05-12 23:40] LABS: Glucose,Synovial Fluid 49 mg/dL; Uric Acid,Synovial Fluid 6.6 mg/dL (<6.0)
[2024-05-12 23:41] LABS: Crystals,Body Fluid None Seen (None Seen)
[2024-05-12 23:47] LABS: Appearance,Synovial Fluid Cloudy; Color,Synovial Fluid Red; Neutrophils,Synovial Fluid 98 % (0-25); Nucleated Cells,Synovial Fld 44300 /cumm; Other Cells,Synovial Fluid 2 %
[2024-05-13 06:47] LABS: ALT/SGPT 16 U/L (<40); AST/SGOT 30 U/L (<32); Albumin/Globulin Ratio 1.2 (1.0-2.3); Alkaline Phosphatase 133 U/L (39-117); Bilirubin,Direct < 0.2 mg/dL (0-0.3); Bilirubin,Total 0.2 mg/dL (0.1-1.0); Blood Urea Nitrogen 36 mg/dL (8-23); Calcium 9.1 mg/dL (8.6-10.4); Carbon Dioxide 26 mmol/L (22-30); Chloride 106 mmol/L (96-108); Globulin 2.6 gm/dL (2.2-3.7); Glomerular Filtration Rate 30; Glucose 110 mg/dL (70-105); Lactate Dehydrogenase 208 U/L (135-225); Phosphorous 3.7 mg/dL (2.5-4.5); Potassium 4.9 mmol/L (3.3-5.1); Sodium 142 mmol/L (133-145); Triglycerides 120 mg/dL (<150); Uric Acid 6.9 mg/dL (2.5-8.0)
[2024-05-13] MEDS: ceFAZolin 2 GM in DEXTROSE 5% IN WATER 50 ML IV SCH (16:51)
[2024-05-14 06:37] LABS: ALT/SGPT 17 U/L (<40); AST/SGOT 30 U/L (<32); Albumin 3.1 gm/dL (3.2-5.2); Albumin/Globulin Ratio 1.2 (1.0-2.3); Alkaline Phosphatase 132 U/L (39-117); Bilirubin,Direct < 0.2 mg/dL (0-0.3); Bilirubin,Total < 0.2 mg/dL (0.1-1.0); Blood Urea Nitrogen 43 mg/dL (8-23); Calcium 9.1 mg/dL (8.6-10.4); Carbon Dioxide 27 mmol/L (22-30); Chloride 106 mmol/L (96-108); Globulin 2.6 gm/dL (2.2-3.7); Glomerular Filtration Rate 30; Glucose 91 mg/dL (70-105); Lactate Dehydrogenase 216 U/L (135-225); Phosphorous 4.6 mg/dL (2.5-4.5); Potassium 4.8 mmol/L (3.3-5.1); Sodium 142 mmol/L (133-145); Triglycerides 91 mg/dL (<150); Uric Acid 7.5 mg/dL (2.5-8.0)
[2024-05-14] MEDS ORDERED: PROPOFOL 200 MG/20 ML VIAL IV ONE (07:45)
[2024-05-14] MEDS ORDERED: fentaNYL 100 MCG/2 ML VIAL ONE (07:45)
[2024-05-14] MEDS ORDERED: KETAMINE 50 MG/ML Syringe IV ONE (07:45)
[2024-05-14] MEDS ORDERED: FAMOTIDINE/PF 20 MG/2 ML VIAL IV ONE (07:47)
[2024-05-14] MEDS ORDERED: GLYCOPYRROLATE 0.2 MG/ML VIAL IV ONE (07:47)
[2024-05-14] MEDS ORDERED: DEXAMETHASONE 10 MG/ML VIAL ONE (07:47)
[2024-05-14] MEDS ORDERED: LIDOCAINE 2% PF 5 ML VIAL ONE (07:47)
[2024-05-14] MEDS ORDERED: ONDANSETRON 4 MG/2 ML VIAL ONE (07:47)
[2024-05-14] MEDS ORDERED: SCOPOLAMINE 1 PATCH PATCH TOPICAL PRN (08:00)
[2024-05-14] MEDS ORDERED: IPRATROPIUM/ALBUTEROL 3 ML AMPUL.NEB NEB PRN ×2 (08:00→09:01)
[2024-05-14] MEDS ORDERED: ceFAZolin 1 GM VIAL ONE (08:02)
[2024-05-14] MEDS ORDERED: PHENYLephrine 1 MG/10 ML SYRINGE (ANEST) ONE (08:14)
[2024-05-14] MEDS ORDERED: 0.9 % SODIUM CHLORIDE 100 ML IV ONE (08:38)
[2024-05-14] MEDS ORDERED: ROPIVACAINE HCL/PF 30 ML VIAL IJ ONE (08:48)
[2024-05-14] MEDS: VANCOMYCIN 1 GM VIAL TOPICAL SCH (08:53)
[2024-05-14] MEDS ORDERED: LACTATED RINGERS 250 ML IV PRN (09:01)
[2024-05-14] MEDS ORDERED: HYDROmorphone 0.5 MG/0.5 ML SYRINGE IV PRN (09:01)
[2024-05-14] MEDS ORDERED: ONDANSETRON 4 MG/2 ML VIAL IV PRN (09:01)
[2024-05-14] MEDS ORDERED: NALOXONE HCL 0.4 MG/ML VIAL IV PRN (09:01)
[2024-05-14] MEDS ORDERED: BENZOCAINE/MENTHOL 1 LOZENGE PO PRN (09:01)
[2024-05-14] MEDS ORDERED: MEPERIDINE 25 MG/ML VIAL IV PRN (09:01)
[2024-05-14] MEDS ORDERED: METHOCARBAMOL 1,000 MG/10 ML VIAL IV PRN (09:01)
[2024-05-14] MEDS ORDERED: fentaNYL 100 MCG/2 ML VIAL IV PRN (09:01)
[2024-05-14] MEDS: ACETAMINOPHEN 1,000 MG/100 ML BAG IV ONE (09:28)
[2024-05-14] MEDS ORDERED: POLYETHYLENE GLYCOL 3350 17 GM PACKET PO PRN (09:32)
[2024-05-14] MEDS ORDERED: BISACODYL 10 MG SUPP.RECT PR PRN (09:32)
[2024-05-14] MEDS: oxyCODONE/APAP 5/325MG TABLET PO PRN (10:48)
[2024-05-14] MEDS: TRANEXAMIC ACID 1,000 MG/10 ML VIAL IV ONE (11:49)
[2024-05-14] MEDS: LACTATED RINGERS 1,000 ML IV SCH (11:50)
[2024-05-14] MEDS: 0.45 % SODIUM CHLORIDE 1,000 ML IV SCH (14:50)
[2024-05-14] MEDS: KETOROLAC 15 MG/ML VIAL IV SCH (15:15)
[2024-05-14] MEDS: 0.9 % SODIUM CHLORIDE 10 ML SYRINGE IV SCH (15:59)
[2024-05-14] MEDS: ceFAZolin 1 GM VIAL IV SCH (16:08)
[2024-05-14] MEDS: SENNOSIDES 1 TABLET PO SCH (21:00)
[2024-05-14] MEDS: ASPIRIN 81 MG TAB.CHEW PO SCH (21:00)
[2024-05-15 06:16] LABS: ALT/SGPT 12 U/L (<40); AST/SGOT 34 U/L (<32); Albumin 3.4 gm/dL (3.2-5.2); Albumin/Globulin Ratio 1.3 (1.0-2.3); Alkaline Phosphatase 135 U/L (39-117); Bilirubin,Direct < 0.2 mg/dL (0-0.3); Bilirubin,Total < 0.2 mg/dL (0.1-1.0); Blood Urea Nitrogen 50 mg/dL (8-23); Calcium 8.9 mg/dL (8.6-10.4); Carbon Dioxide 24 mmol/L (22-30); Chloride 99 mmol/L (96-108); Globulin 2.7 gm/dL (2.2-3.7); Glomerular Filtration Rate 20; Glucose 130 mg/dL (70-105); Lactate Dehydrogenase 227 U/L (135-225); Phosphorous 4.6 mg/dL (2.5-4.5); Potassium 5.8 mmol/L (3.3-5.1); Sodium 135 mmol/L (133-145); Triglycerides 98 mg/dL (<150); Uric Acid 8.1 mg/dL (2.5-8.0)
[2024-05-15 06:31] LABS: Hematocrit 22.9 % (34.1-44.9); Hemoglobin 6.6 g/dL (11.2-15.7)
[2024-05-15] MEDS: 0.9 % SODIUM CHLORIDE 250 ML IV SCH (10:59)
[2024-05-15] MEDS: FUROSEMIDE 20 MG/2 ML VIAL IV ONE (13:26)
[2024-05-15] MEDS: CETIRIZINE 10 MG TABLET PO PRN (16:04)
[2024-05-15] MEDS: BENZONATATE 100 MG CAPSULE PO PRN (20:36)
[2024-05-15] MEDS: ASPIRIN 81 MG TAB.CHEW CHEWED SCH (20:46)
[2024-05-15] MEDS: 0.9 % SODIUM CHLORIDE 500 ML IV ONE (22:57)
[2024-05-16 06:45] LABS: ALT/SGPT < 5 U/L (<40); AST/SGOT 46 U/L (<32); Albumin 2.9 gm/dL (3.2-5.2); Alkaline Phosphatase 131 U/L (39-117); Bilirubin,Direct < 0.2 mg/dL (0-0.3); Bilirubin,Total 0.2 mg/dL (0.1-1.0); Blood Urea Nitrogen 55 mg/dL (8-23); Calcium 8.6 mg/dL (8.6-10.4); Carbon Dioxide 20 mmol/L (22-30); Chloride 103 mmol/L (96-108); Globulin 2.8 gm/dL (2.2-3.7); Glomerular Filtration Rate 23; Glucose 92 mg/dL (70-105); Lactate Dehydrogenase 224 U/L (135-225); Phosphorous 3.7 mg/dL (2.5-4.5); Potassium 5.1 mmol/L (3.3-5.1); Sodium 136 mmol/L (133-145); Triglycerides 111 mg/dL (<150); Uric Acid 8.5 mg/dL (2.5-8.0)
[2024-05-16 07:06] LABS: Hematocrit 29.9 % (34.1-44.9); Hemoglobin 9.1 g/dL (11.2-15.7)
[2024-05-16] MEDS ORDERED: ENOXAPARIN 30 MG/0.3 ML SYRINGE SQ SCH (09:00)
[2024-05-16] MEDS: 0.9 % SODIUM CHLORIDE 1,000 ML IV ONE (09:07)
[2024-05-16] MEDS: ALTEPLASE 2 MG VIAL IV ONE (09:15)
[2024-05-16] MEDS ORDERED: PIPERACILLIN SODIUM/TAZOBACTAM 3.375 GM in DEXTROSE 5% IN WATER 50 ML IV SCH (15:00)
[2024-05-16] MEDS ORDERED: PIPERACILLIN SODIUM/TAZOBACTAM 3.375 GM in DEXTROSE 5% IN WATER 100 ML IV SCH (15:00)
[2024-05-16] MEDS: PIPERACILLIN SODIUM/TAZOBACTAM 4.5 GM in DEXTROSE 5% IN WATER 50 ML IV SCH (16:10)
[2024-05-16] MEDS: PIPERACILLIN SODIUM/TAZOBACTAM 4.5 GM in 0.9 % SODIUM CHLORIDE 100 ML IV SCH (19:47)
[2024-05-17] MEDS: ALTEPLASE 2 MG VIAL IV ONE ×2 (05:24)
[2024-05-17 06:56] LABS: ALT/SGPT < 5 U/L (<40); AST/SGOT 82 U/L (<32); Albumin/Globulin Ratio 1.2 (1.0-2.3); Alkaline Phosphatase 128 U/L (39-117); Bilirubin,Direct < 0.2 mg/dL (0-0.3); Bilirubin,Total 0.3 mg/dL (0.1-1.0); Blood Urea Nitrogen 43 mg/dL (8-23); Calcium 8.9 mg/dL (8.6-10.4); Carbon Dioxide 23 mmol/L (22-30); Chloride 110 mmol/L (96-108); Globulin 2.6 gm/dL (2.2-3.7); Glomerular Filtration Rate 28; Glucose 86 mg/dL (70-105); Lactate Dehydrogenase 260 U/L (135-225); Phosphorous 3.5 mg/dL (2.5-4.5); Potassium 4.7 mmol/L (3.3-5.1); Sodium 144 mmol/L (133-145); Triglycerides 82 mg/dL (<150); Uric Acid 7.3 mg/dL (2.5-8.0)
[2024-05-17] MEDS: METOPROLOL SUCCINATE 25 MG TAB.XL.24H PO SCH (11:46)
[2024-05-17] MEDS: DAPTOmycin 500 MG VIAL IV SCH (11:46)
[2024-05-17] MEDS: ENOXAPARIN 30 MG/0.3 ML SYRINGE SQ SCH (11:47)
[2024-05-17] MEDS: amLODIPine 5 MG TABLET PO SCH (11:47)
[2024-05-18 06:34] LABS: Blood Urea Nitrogen 34 mg/dL (8-23); Calcium 8.8 mg/dL (8.6-10.4); Carbon Dioxide 23 mmol/L (22-30); Chloride 109 mmol/L (96-108); Glomerular Filtration Rate 28; Glucose 98 mg/dL (70-105); Potassium 4.8 mmol/L (3.3-5.1); Sodium 142 mmol/L (133-145)
[2024-05-18] MEDS: FAMOTIDINE 20 MG TABLET PO SCH (09:01)
[2024-05-19 12:40] VITALS: TEMP 98.2; O2SAT 92
[2024-05-19] MEDS: ERTAPENEM 1 GM in 0.9 % SODIUM CHLORIDE 50 ML IV SCH (14:02)
== END 2024-05-19 14:45 | DRG 486 ==
LOC: ED 15:26 → MEDSUR 22:27
PROVIDERS: ADMIT Student in an Organized Health Care Education/Training Program; ATTEND Internal Medicine